=== PATIENT | female | born 1955 | race Caucasian/White ===

== ENCOUNTER 2017-01-24 17:00 | Emergency (ER) | payer MEDICARE, MEDICAID ==
[~2017-01-24] VITALS: Ht 167.6 cm; Wt 74.8 kg
[2017-01-24] MEDS ORDERED: PROTONIX TR40 MG PO (17:07)
[2017-01-24] MEDS ORDERED: CRESTOR40 M1 PO (17:07)
[2017-01-24] MEDS ORDERED: LISINOPRIL20 MG PO (17:07)
[2017-01-24] MEDS ORDERED: ZANTAC 150150 MG PO (17:07)
[2017-01-24] MEDS ORDERED: LINZESS290 MC1 PO (17:08)
[2017-01-24] MEDS ORDERED: FENOFIBRATE145 M1 PO (17:08)
[2017-01-24] MEDS ORDERED: GLUCOPHAGE500 M1 PO (17:08)
[2017-01-24] MEDS ORDERED: CARAFATE1 G1 PO (17:09)
[2017-01-24] MEDS ORDERED: PROPRANOLOL HCL40 M1 PO (17:09)
[2017-01-24] MEDS ORDERED: IMITREX100 MG PO (17:09)
[2017-01-24 17:43] LABS: BILIRUBIN NEGATIVE (NEGATIVE); BLOOD NEGATIVE (NEGATIVE); CLARITY CLEAR (CLEAR); COLOR YELLOW (YELLOW); GLUCOSE NEGATIVE (NEGATIVE); KETONE NEGATIVE (NEGATIVE); LEUKO ESTERASE NEGATIVE (NEGATIVE); NITRITE NEGATIVE (NEGATIVE); PH 5.5 (5.0-9.0); PROTEIN NEGATIVE (NEGATIVE); UROBILINOGEN 0.2 E.U./dl (0.2-1.0)
[2017-01-24 17:52] LABS: WBC 0-2 wbc/hpf (0-5)
[2017-01-24 17:53] LABS: BACTERIA TRACE; EPITHELIAL CELLS 0-2; URINE REFLEX COMMENT NO (NO)
[2017-01-24] MEDS ORDERED: ZOFRAN ODT4 MG SL (18:11)
[2017-01-24] MEDS ORDERED: CLINDAMYCIN HC300 MG PO (18:11)
== END 2017-01-24 18:15 | disposition home or self-care (01) ==
LOC: ED 17:00
PROVIDERS: Physician Assistant
DX: R11.2 Nausea with vomiting, unspecified (principal); K08.89 Other specified disorders of teeth and supporting structures; F17.200 Nicotine dependence, unspecified, uncomplicated; Z98.890 Other specified postprocedural states; Z90.710 Acquired absence of both cervix and uterus; Z79.899 Other long term (current) drug therapy; Z79.82 Long term (current) use of aspirin; Z88.0 Allergy status to penicillin; Z91.040 Latex allergy status

== ENCOUNTER 2017-02-13 14:02 | Inpatient (IN) | payer MEDICARE, MEDICAID ==
[~2017-02-13] VITALS: Ht 168 cm; Wt 76.7 kg
--- NOTE | ~2017-02-13 | ST ---
[place], [place] EXERCISE STRESS TEST REPORT NAME: ISSA AGUILERA [facility] #: [id number] UNIT #: [id number] ROOM: [facility] DOCTOR: INES ANGELES MD BIRTHDATE: [birth year] DATE: 02/15/17 REASON FOR TEST: Evaluation of chest pain. PHYSICAL EXAMINATION NECK: Supple. LUNGS: Clear anteriorly. HEART: Regular rhythm. PROTOCOL: Lexiscan protocol. Maximum heart rate 82, peak blood pressure 112/69. SYMPTOMS: The patient is chest pain free. EKG, no ischemia, no arrhythmias. CONCLUSION: Clinically, the patient is chest pain free. EKG nonischemic. POST-STRESS COMPLICATIONS: None. The patient received a total of 0.4 mg of Lexiscan. INES ANGELES MD CM:STRESS:EXERCISE STRESS TEST REPORT [id number] INES ANGELES MD
--- NOTE | ~2017-02-13 | PR ---
[place], [place] PROGRESS NOTE NAME: ISSA AGUILERA UNIT #: [id number] ROOM: 515 DOCTOR: INES ANGELES MD BIRTHDATE: [birth year] DOS: 02/15/2017 REASON FOR VISIT: Chest pain. The patient any further chest pain. No palpitations or dizziness. No orthopnea, no fever or chills. No nausea, vomiting or diarrhea. No headache, no visual symptoms. No hematuria or dysuria. REVIEW OF SYSTEMS: Review of 8 systems negative except as mentioned above. PHYSICAL EXAMINATION: VITAL SIGNS: Blood pressure 110/62, pulse 58, respiratory rate 16. GENERAL: Alert, comfortable, in no acute distress. HEAD AND NECK: Pupils are round and equal. No jaundice. Tongue was moist and pharynx was clear. Neck supple, no distended neck veins, no carotid bruit. CHEST: Chest wall symmetrical, nontender. LUNGS: Clear to auscultation bilaterally. HEART: Regular rhythm, no S3, no palpable thrills. ABDOMEN: Benign, nontender. Bowel sounds normal. EXTREMITIES: Showed no edema. Distal pulses are palpable. SKIN: Warm and dry. No cyanosis, no clubbing. NEUROLOGIC: The patient is alert, oriented. No focal neurologic deficit. Medications, rhythm strips and labs reviewed as available. IMPRESSION: 1. Chest pain, myocardial infarction ruled out. 2. Hypertension, stable. 3. Diabetes type 2. 4. Dyslipidemia. RECOMMENDATIONS: 1. Continue current medications. 2. Lexiscan stress test today to rule out ischemia. 3. The patient counseled to quit smoking. 4. The stress test is unremarkable, she can be discharged home today. [place], [place] PROGRESS NOTE NAME: ISSA AGUILERA UNIT #: [id number] ROOM: 515 DOCTOR: INES ANGELES MD BIRTHDATE: [birth year] INES ANGELES MD CM:PNTRANS [id number] INES ANGELES MD 02/16/17 0252 interface
[~2017-02-13 14:02] MED LIST: CARAFATE1 G1 PO; CLINDAMYCIN HC300 MG PO; CRESTOR40 M1 PO; FENOFIBRATE145 M1 PO; GLUCOPHAGE500 M1 PO; IMITREX100 MG PO; LINZESS290 MC1 PO; LISINOPRIL20 MG PO; PROPRANOLOL HCL40 M1 PO; PROTONIX TR40 MG PO; ZANTAC 150150 MG PO; ZOFRAN ODT4 MG SL
[2017-02-13 14:13] VITALS: BP 152/57
[2017-02-13 14:32] VITALS: BP 152/57
[2017-02-13 14:40] LABS: BASO % 0.1 % (0.0-1.0); EOS # 0.1 10*3/uL (0.0-0.4); EOS % 1.5 % (1.0-4.0); HEMATOCRIT 40.2 % (37.0-47.0); HEMOGLOBIN 13.3 g/dl (12.0-16.0); LYMPH # 3.8 10*3/uL (1.3-4.4); MEAN CELL VOLUME 88.9 fl (81.0-99.0); MEAN CORPUSCULAR HGB 29.4 pg (27.0-31.0); MEAN CORPUSCULAR HGB CONC 33.1 g/dl (33.0-37.0); MEAN PLATELET VOLUME 11.6 fl (9.6-12.3); MONO # 0.6 10*3/uL (0.1-1.0); MONO % 6.3 % (3.0-9.0); NEUT # 4.7 10*3/uL (2.3-7.9); NEUT % 50.8 % (47.0-73.0); PLATELET COUNT AUTOMATED 254 10*3/uL (130-400); RED BLOOD COUNT 4.52 10*6/uL (4.10-5.10); RED CELL DISTRI WIDTH 14.5 % (0-14.5); WHITE BLOOD COUNT 9.3 10*3/uL (4.8-10.8)
[2017-02-13 14:55] LABS: PROTHROMBIN TIME 10.9 SECONDS (9.0-12.4)
[2017-02-13 14:56] LABS: ALBUMIN 3.9 gm/dl (3.1-4.5); ALKALINE PHOSPHATASE 86 U/L (45-117); BILIRUBIN, TOTAL 0.4 mg/dl (0.2-1.0); BUN 20 mg/dl (7-24); CARBON DIOXIDE 25 mmol/L (21-32); CHLORIDE 106 mmol/L (98-107); EST GLOM FILT AFRICAN AMERICAN > 60 ml/min; GLUCOSE 98 mg/dL (65-99); MAGNESIUM 1.8 mg/dL (1.5-2.1); POTASSIUM 4.8 mmol/L (3.5-5.1); SGOT/AST 17 IU/L (3-35); SGPT/ALT 21 U/L (12-78); SODIUM 143 mmol/L (136-145); TOTAL PROTEIN 7.1 gm/dL (6.4-8.2)
[2017-02-13 14:59] LABS: TROPONIN I < 0.015 ng/ml (<0.045)
[2017-02-13 15:24] VITALS: BP 132/62
[2017-02-13 18:26] VITALS: BP 140/56
[2017-02-13 18:28] LABS: CPK 64 U/L (26-192)
[2017-02-13 18:29] LABS: CKMB < 0.5 ng/ml (0.5-3.6); TROPONIN I < 0.015 ng/ml (<0.045)
[2017-02-13 19:30] VITALS: BP 137/50
[2017-02-13] MEDS ORDERED: VENTOLIN H0.09 MG/AC INH (20:13)
[2017-02-14] VITALS: BP 148/57
[2017-02-14 00:52] LABS: CPK 65 U/L (26-192)
[2017-02-14 00:53] LABS: CKMB < 0.5 ng/ml (0.5-3.6); TROPONIN I < 0.015 ng/ml (<0.045)
[2017-02-14 06:50] LABS: BASO % 0.1 % (0.0-1.0); EOS # 0.2 10*3/uL (0.0-0.4); EOS % 1.9 % (1.0-4.0); HEMATOCRIT 39.1 % (37.0-47.0); HEMOGLOBIN 12.8 g/dl (12.0-16.0); LYMPH # 3.7 10*3/uL (1.3-4.4); LYMPH % 43.3 % (27.0-41.0); MEAN CELL VOLUME 88.5 fl (81.0-99.0); MEAN CORPUSCULAR HGB CONC 32.7 g/dl (33.0-37.0); MEAN PLATELET VOLUME 12.1 fl (9.6-12.3); MONO # 0.6 10*3/uL (0.1-1.0); NEUT # 4.1 10*3/uL (2.3-7.9); NEUT % 47.4 % (47.0-73.0); PLATELET COUNT AUTOMATED 245 10*3/uL (130-400); RED BLOOD COUNT 4.42 10*6/uL (4.10-5.10); RED CELL DISTRI WIDTH 14.3 % (0-14.5); WHITE BLOOD COUNT 8.6 10*3/uL (4.8-10.8)
[2017-02-14 07:08] LABS: CPK 56 U/L (26-192)
[2017-02-14 07:13] LABS: CKMB < 0.5 ng/ml (0.5-3.6); TROPONIN I < 0.015 ng/ml (<0.045)
[2017-02-14 07:28] LABS: CHLORIDE 106 mmol/L (98-107); SODIUM 141 mmol/L (136-145)
[2017-02-14 07:43] LABS: BUN 19 mg/dl (7-24); CARBON DIOXIDE 29 mmol/L (21-32); CHOLESTEROL 189 mg/dL (<200); EST GLOM FILT AFRICAN AMERICAN > 60 ml/min; FREE T4 1.22 ng/dl (0.76-1.46); GLUCOSE 116 mg/dL (65-99); HDL CHOLESTEROL 57 mg/dl (40-60); LDL CHOLESTEROL 106 mg/dL (9-159); PHOSPHOROUS 3.4 mg/dL (2.5-4.9); TRIGLYCERIDES 132 mg/dl (<150); VLDL CHOLESTEROL 26 mg/dL (6-40)
[2017-02-14 08:00] VITALS: BP 122/50
[2017-02-14 08:55] LABS: HEMOGLOBIN A1c 6.2 % (4.8-5.6)
[2017-02-14 12:00] VITALS: BP 95/54
[2017-02-14 16:00] VITALS: BP 116/52
[2017-02-14 20:00] VITALS: BP 119/53
[2017-02-15] VITALS: BP 112/49
[2017-02-15 08:00] VITALS: BP 112/54
[2017-02-15 12:00] VITALS: BP 138/62
[2017-02-16] MEDS ORDERED: CARAFATE1 G1 PO (18:30)
[2017-02-16] MEDS ORDERED: XANAX0.5 MG PO (18:30)
[2017-02-16] MEDS ORDERED: HYDROXYZINE HCL25 MG PO (18:30)
== END 2017-02-15 15:23 | disposition home or self-care (01) | DRG 206 ==
LOC: ED 14:02 → EDHOLD 17:35 → 5E 17:35
PROVIDERS: Registered Nurse; Student in an Organized Health Care Education/Training Program
DX: M94.0 Chondrocostal junction syndrome [Tietze] (principal); I10 Essential (primary) hypertension; E78.00 Pure hypercholesterolemia, unspecified; E11.9 Type 2 diabetes mellitus without complications; F17.210 Nicotine dependence, cigarettes, uncomplicated; Z88.0 Allergy status to penicillin; Z91.040 Latex allergy status; Z80.41 Family history of malignant neoplasm of ovary; E66.3 Overweight; Z68.25 Body mass index [BMI] 25.0-25.9, adult; G47.00 Insomnia, unspecified; Z90.710 Acquired absence of both cervix and uterus; F41.1 Generalized anxiety disorder

== ENCOUNTER 2017-02-16 16:55 | Emergency (ER) | payer MEDICARE, MEDICAID ==
[~2017-02-16] VITALS: Wt 76.7 kg
--- NOTE | ~2017-02-16 | EKG ---
[place], [place] ELECTROCARDIOGRAM REPORT NAME: ISSA AGUILERA UNIT #: [id number] ROOM: DOCTOR: DINESH LEBLANC MD BIRTHDATE: [birth year] DOS: 02/16/2017 TIME: 17:31. FINDINGS: Normal sinus rhythm at rate 61, normal electrocardiogram. DINESH LEBLANC MD CM:EKGRPT:ELECTROCARDIOGRAM REPORT 50 24 DINESH LEBLANC MD
[~2017-02-16 16:55] MED LIST changes: +VENTOLIN H0.09 MG/AC INH
[2017-02-16 17:34] LABS: BASO % 0.1 % (0.0-1.0); EOS # 0.1 10*3/uL (0.0-0.4); EOS % 1.3 % (1.0-4.0); HEMATOCRIT 38.7 % (37.0-47.0); HEMOGLOBIN 12.9 g/dl (12.0-16.0); LYMPH # 3.8 10*3/uL (1.3-4.4); LYMPH % 41.3 % (27.0-41.0); MEAN CORPUSCULAR HGB 29.7 pg (27.0-31.0); MEAN CORPUSCULAR HGB CONC 33.3 g/dl (33.0-37.0); MEAN PLATELET VOLUME 11.2 fl (9.6-12.3); MONO # 0.6 10*3/uL (0.1-1.0); MONO % 6.9 % (3.0-9.0); NEUT # 4.7 10*3/uL (2.3-7.9); NEUT % 50.2 % (47.0-73.0); PLATELET COUNT AUTOMATED 256 10*3/uL (130-400); RED BLOOD COUNT 4.35 10*6/uL (4.10-5.10); RED CELL DISTRI WIDTH 14.1 % (0-14.5); WHITE BLOOD COUNT 9.3 10*3/uL (4.8-10.8)
[2017-02-16 17:54] LABS: ALBUMIN 3.9 gm/dl (3.1-4.5); ALKALINE PHOSPHATASE 81 U/L (45-117); BILIRUBIN, TOTAL 0.2 mg/dl (0.2-1.0); BUN 17 mg/dl (7-24); CARBON DIOXIDE 25 mmol/L (21-32); CHLORIDE 110 mmol/L (98-107); CPK 87 U/L (26-192); EST GLOM FILT AFRICAN AMERICAN > 60 ml/min; GLUCOSE 96 mg/dL (65-99); LDH 168 U/L (84-246); SGOT/AST 13 IU/L (3-35); SGPT/ALT 21 U/L (12-78); SODIUM 146 mmol/L (136-145)
[2017-02-16 17:56] LABS: CKMB 0.7 ng/ml (0.5-3.6)
[2017-02-16 17:59] LABS: PROTHROMBIN TIME 11.1 SECONDS (9.0-12.4)
[2017-02-16 18:01] LABS: TROPONIN I < 0.015 ng/ml (<0.045)
[2017-02-16] MEDS ORDERED: XANAX0.5 MG PO (18:30)
[2017-02-16] MEDS ORDERED: HYDROXYZINE HCL25 MG PO (18:30)
[2017-02-16] MEDS ORDERED: CARAFATE1 G1 PO (18:30)
== END 2017-02-16 18:42 | disposition home or self-care (01) ==
LOC: ED 16:55
PROVIDERS: Physician Assistant
DX: K29.00 Acute gastritis without bleeding (principal); F41.9 Anxiety disorder, unspecified; F17.200 Nicotine dependence, unspecified, uncomplicated; Z88.0 Allergy status to penicillin; Z91.040 Latex allergy status; Z79.899 Other long term (current) drug therapy

== ENCOUNTER 2017-02-25 20:09 | Inpatient (IN) | payer MEDICARE, MEDICAID ==
[~2017-02-25] VITALS: Ht 167.6 cm; Wt 76.8 kg
--- NOTE | ~2017-02-25 | PR ---
[place], [place] PROGRESS NOTE NAME: ISSA AGUILERA UNIT #: [id number] ROOM: 532 DOCTOR: YANET TINOCO MD BIRTHDATE: [birth year] DOS: 02/28/2017 PULMONARY PROGRESS NOTE SUBJECTIVE: She has been still noted with symptoms of shortness of breath without any changes. Denies symptoms of chest pain or any abdominal pain at the present time. The patient denies any symptoms of hemoptysis. OBJECTIVE: VITAL SIGNS: For the patient which was recorded showed the temperature of the patient noted as normal, respiratory rate 20, heart rate 52-67, blood pressure 142/54-120/50. Pulse oxygen saturation on room air was 96% saturation. HEENT: Examination shows no acute change. NECK: Supple. CARDIOVASCULAR SYSTEM: S1, S2 is audible. LUNGS: The patient was noted without any wheezing or crackles at the present time. ABDOMEN: Soft, nontender. LABORATORY DATA: CT scan of the chest for this patient done as a CTA protocol yesterday for the patient was personally reviewed. There was no evidence of pulmonary embolism noted. Lung parenchymal review for this patient was done for this patient which shows evidence of a centrilobular emphysema of the patient in the upper lobes. There was no acute pulmonary infiltration or any abnormal pulmonary nodules visible. IMPRESSION: 1. The patient with recurrent shortness of breath mostly related to underlying chronic obstructive pulmonary disease has been considered. 2. Past history of nicotine use as well. PLAN OF TREATMENT: The patient could be discharged home on bronchodilators and oxygen supplementation. Other treatment, plan of management to be continued for the patient as well. Usual care. All other supportive therapy, plan of management and other treatment. Further treatment changes needs to be done for this patient based on the progression of the illness. [place], [place] PROGRESS NOTE NAME: ISSA AGUILERA UNIT #: [id number] ROOM: 532 DOCTOR: YANET TINOCO MD BIRTHDATE: [birth year] YANET SHRESTHA MD CM:PNTRANS [id number] YANET THOMAS MD 03/01/17 0218 interface
--- NOTE | ~2017-02-25 | CON ---
[place], [place] REPORT OF CONSULTATION [id number] #: [id number] ROOM: 532 DOCTOR: FADY THOMAS MD,YANET BIRTHDATE: [birth year] DOS: 02/27/2017 REASON FOR CONSULTATION: To assess the patient for symptoms of shortness of breath. HISTORY OF PRESENT ILLNESS: This is a 61-year-old white female, unknown to me from the past, presented to the hospital Emergency Room. The patient has been noted symptoms of shortness of breath, which have been noted mostly with exertion. The shortness of breath of the patient described at rest as well prior to assessment in the Emergency Room. The patient denies symptoms of chest pain. Denies any symptoms of coughing or any wheezing. The symptoms for the patient were described for the patient to be present from the past for this patient for several months. The patient was not noted symptoms of shortness of breath at rest at this time. REVIEW OF SYSTEMS: CONSTITUTIONAL: She was denying any symptoms of fever, chills, fatigue, tiredness, or any abnormal weight loss. EYES: Denies any burning, redness, or tenderness. EARS, NOSE, AND THROAT: No sore throat, hoarseness, otalgia, postnasal drainage. CARDIOVASCULAR: Denies anginal pain, edema of the lower extremities. GASTROINTESTINAL: Denies dysphagia, nausea, vomiting, diarrhea, abdominal pain, hematemesis, melena, or hematochezia. SKIN: Denies any lesions or rashes. CENTRAL NERVOUS SYSTEM: No dizziness, headache, diplopia, syncopal episodes. MUSCULOSKELETAL: No acute deformities or pain. Remaining systems were reviewed with the patient, they were noted all negative. PAST MEDICAL HISTORY: The patient was noted with history of: 1. Type 2 diabetes mellitus. 2. General anxiety disorder. 3. Essential hypertension. 4. Hypercholesterolemia. 5. Very mild obesity. 6. History of nicotine abuse. PAST SURGICAL HISTORY: 1. Appendectomy. 2. . 3. Exploratory laparotomy. 4. Hysterectomy. 5. Tonsillectomy. SOCIAL HISTORY: She is , has 3 children. Smoking started at teenage year half a pack of cigarettes per day. There was no history of alcohol use or any illicit drug use. FAMILY HISTORY: The patient's mother of the patient age of 5353 years old, [place], [place] REPORT OF CONSULTATION NAME: ISSA AGUILERA UNIT #: [id number] ROOM: 532 DOCTOR: FADY THOMAS MD,YANET BIRTHDATE: [birth year] complication related to ovarian cancer. History about dad was unknown. HOME MEDICATIONS: Noted use of Ventolin HFA inhaler p.r.n. use, fenofibrate, Vistaril, Linzess, lisinopril, metformin, Protonix, Paxil, propranolol, ranitidine, Crestor, Carafate, Imitrex. DRUG ALLERGIES: NOTED REMARKABLE FOR ALLERGY TO PENICILLINS. PHYSICAL EXAMINATION: GENERAL: This is a 61-year-old white female, currently lying in the bed for the patient without any distress. The patient's height was recorded on admission with height of 5 feet 6 inches, weight of 169 pounds, BMI 27.3. VITAL SIGNS: Normal temperature, respiratory rate 20, heart rate of 52-69, blood pressure of 151/66-144/51. Pulse oxygen saturation on room air was recorded as 91-98% saturation. HEENT: Examination shows head was atraumatic. Eyes nonicterus. NECK: Supple. CARDIOVASCULAR: S1, S2 audible. LUNGS: Mild reduced breath sounds without any wheezing or crackles. ABDOMEN: Soft, nontender. EXTREMITIES: Show no edema, clubbing, cyanosis. CENTRAL NERVOUS SYSTEM: Cranial nerves 2-12 intact. No focal deficits. SKIN: No lesions or rashes. MUSCULOSKELETAL: No deformities. LABORATORY DATA: CBC of the patient that was done 02/25/2017 was noted as normal CBC. BMP of the patient 02/25/2017 was noted, glucose 121, BUN and creatinine was normal. Remaining labs were normal. CK-MB, troponin normal. D-dimer of the patient on 02/25/2017 was 0.36 that was normal. PT and PTT for the patient on 02/26/2017 was noted as normal PT and PTT. CMP of the patient of 02/26/2017 noted normal BUN and creatinine, remaining liver function tests were normal as well. CBC of the patient remains normal on 02/26/2017. The patient has an echocardiogram for this patient that was done on previous admission and the stress testing for the patient during her admission on 02/15/2017. Echocardiogram of the patient was reported by the Cardiology Services with left ventricular ejection fraction was noted at 70% with diastolic dysfunction. Myocardial perfusion images scan for this patient was also done as the Lexiscan, described with left ventricular ejection fraction normal at 70% with normal myocardial perfusion study. Chest x-ray of the patient was essentially noted free of any acute obvious major infiltration, 1 view. IMPRESSION: The patient has been noted unexplained shortness breath, which has been described for this patient so far no etiology has been determined. The only abnormal assessment noted mildly for the patient with mild diastolic dysfunction, but there were no obvious signs of overt congestive heart failure. D-dimer was noted negative for this patient as well for this patient with current findings, certainly cannot be considered for this patient for pulmonary embolism. However, interstitial lung disease which could be early as the etiology for the patient or the shortness of breath related to anxiety and others to be considered. The reason for the patient's current shortness of [place], [place] REPORT OF CONSULTATION NAME[facility]: [id number] UNIT #: [id number] ROOM: [facility] DOCTOR: YANET TINOCO MD BIRTHDATE: [birth year] breath may be related to undiagnosed bronchial asthma, chronic obstructive pulmonary disease, which requires further outpatient assessment. PLAN OF TREATMENT: I will be ordering CT scan of the chest for this patient with CTA protocol for the patient for more definitive assessment ruling out pulmonary embolism. It would also be advantageous for this patient to rule out any parenchymal lung disease or other occult problem which is not seen just with the usual chest x-ray such as early interstitial lung disease. Once all that workup is completed for the patient and if noted negative for the patient, the patient will be considered for possible home discharge and further outpatient assessment to be done for this patient as an outpatient. Thanks for allowing me to participate in the care of this patient. YANET SHRESTHA MD CM:CONSTR:REPORT OF CONSULTATION 1341 02/28/17 1014 interface
[~2017-02-25 20:09] MED LIST changes: +HYDROXYZINE HCL25 MG PO; +XANAX0.5 MG PO
[2017-02-25 20:19] VITALS: BP 177/70
[2017-02-25 21:31] LABS: BASO % 0.2 % (0.0-1.0); EOS # 0.1 10*3/uL (0.0-0.4); EOS % 1.5 % (1.0-4.0); HEMATOCRIT 38.5 % (37.0-47.0); HEMOGLOBIN 12.7 g/dl (12.0-16.0); LYMPH # 4.8 10*3/uL (1.3-4.4); LYMPH % 51.6 % (27.0-41.0); MEAN CORPUSCULAR HGB 29.7 pg (27.0-31.0); MEAN PLATELET VOLUME 11.2 fl (9.6-12.3); MONO # 0.5 10*3/uL (0.1-1.0); MONO % 5.8 % (3.0-9.0); NEUT # 3.8 10*3/uL (2.3-7.9); NEUT % 40.7 % (47.0-73.0); PLATELET COUNT AUTOMATED 289 10*3/uL (130-400); RED BLOOD COUNT 4.28 10*6/uL (4.10-5.10); RED CELL DISTRI WIDTH 14.2 % (0-14.5); WHITE BLOOD COUNT 9.3 10*3/uL (4.8-10.8)
[2017-02-25 21:41] VITALS: BP 160/59
[2017-02-25 21:48] LABS: BUN 15 mg/dl (7-24); CARBON DIOXIDE 28 mmol/L (21-32); CHLORIDE 108 mmol/L (98-107); EST GLOM FILT AFRICAN AMERICAN > 60 ml/min; GLUCOSE 121 mg/dL (65-99); POTASSIUM 4.5 mmol/L (3.5-5.1); SODIUM 139 mmol/L (136-145); TROPONIN I < 0.015 ng/ml (<0.045)
[2017-02-25 22:27] VITALS: BP 181/64
[2017-02-25 22:42] VITALS: BP 177/66
[2017-02-25] MEDS ORDERED: VISTARIL25 M2 PO (23:25)
[2017-02-25] MEDS ORDERED: PAXIL20 M1 PO (23:27)
[2017-02-26] VITALS: BP 143/52
[2017-02-26 00:41] LABS: CPK 79 U/L (26-192)
[2017-02-26 00:42] LABS: CKMB < 0.5 ng/ml (0.5-3.6); TROPONIN I < 0.015 ng/ml (<0.045)
[2017-02-26 06:25] LABS: CKMB 0.7 ng/ml (0.5-3.6); CPK 67 U/L (26-192); TROPONIN I < 0.015 ng/ml (<0.045)
[2017-02-26 06:34] LABS: BASO % 0.1 % (0.0-1.0); EOS # 0.1 10*3/uL (0.0-0.4); EOS % 1.5 % (1.0-4.0); HEMATOCRIT 39.3 % (37.0-47.0); HEMOGLOBIN 12.6 g/dl (12.0-16.0); LYMPH # 4.7 10*3/uL (1.3-4.4); LYMPH % 53.5 % (27.0-41.0); MEAN CELL VOLUME 91.2 fl (81.0-99.0); MEAN CORPUSCULAR HGB 29.2 pg (27.0-31.0); MEAN CORPUSCULAR HGB CONC 32.1 g/dl (33.0-37.0); MEAN PLATELET VOLUME 11.4 fl (9.6-12.3); MONO # 0.6 10*3/uL (0.1-1.0); MONO % 6.7 % (3.0-9.0); NEUT # 3.3 10*3/uL (2.3-7.9); PLATELET COUNT AUTOMATED 281 10*3/uL (130-400); RED BLOOD COUNT 4.31 10*6/uL (4.10-5.10); RED CELL DISTRI WIDTH 14.2 % (0-14.5); WHITE BLOOD COUNT 8.7 10*3/uL (4.8-10.8)
[2017-02-26 06:37] LABS: ALBUMIN 3.5 gm/dl (3.1-4.5); BUN 15 mg/dl (7-24); CARBON DIOXIDE 30 mmol/L (21-32); CHLORIDE 108 mmol/L (98-107); CHOLESTEROL 196 mg/dL (<200); EST GLOM FILT AFRICAN AMERICAN > 60 ml/min; GLUCOSE 96 mg/dL (65-99); MAGNESIUM 1.9 mg/dL (1.5-2.1); PHOSPHOROUS 3.8 mg/dL (2.5-4.9); POTASSIUM 4.1 mmol/L (3.5-5.1); SGOT/AST 12 IU/L (3-35); SGPT/ALT 20 U/L (12-78); SODIUM 145 mmol/L (136-145); TRIGLYCERIDES 267 mg/dl (<150); VLDL CHOLESTEROL 53 mg/dL (6-40)
[2017-02-26 06:40] LABS: PROTHROMBIN TIME 10.9 SECONDS (9.0-12.4)
[2017-02-26 06:44] LABS: ALKALINE PHOSPHATASE 75 U/L (45-117); BILIRUBIN, TOTAL 0.2 mg/dl (0.2-1.0); FREE T4 1.21 ng/dl (0.76-1.46); HDL CHOLESTEROL 47 mg/dl (40-60); LDL CHOLESTEROL 96 mg/dL (9-159); TOTAL PROTEIN 6.7 gm/dL (6.4-8.2)
[2017-02-26 08:00] VITALS: BP 112/56
[2017-02-26 08:50] LABS: HEMOGLOBIN A1c 6.2 % (4.8-5.6)
[2017-02-26 10:41] LABS: FOLIC ACID 9.65 ng/mL (>5.38); VITAMIN D, 25-HYDROXY 25.4 ng/mL (30-100)
[2017-02-26 12:00] VITALS: BP 112/50
[2017-02-26 12:24] LABS: CPK 64 U/L (26-192)
[2017-02-26 12:25] LABS: CKMB < 0.5 ng/ml (0.5-3.6); TROPONIN I < 0.015 ng/ml (<0.045)
[2017-02-26 16:00] VITALS: BP 140/52
[2017-02-26 20:00] VITALS: BP 151/66
[2017-02-27] VITALS: BP 88/47
[2017-02-27 08:00] VITALS: BP 154/58
[2017-02-27 12:00] VITALS: BP 144/51
[2017-02-27 16:00] VITALS: BP 156/56
[2017-02-27 20:00] VITALS: BP 152/59
[2017-02-27 23:00] VITALS: BP 142/54
[2017-02-28] VITALS: BP 142/54
[2017-02-28 08:00] VITALS: BP 120/50
[2017-02-28] MEDS ORDERED: D-1000 185 MG-11 TAB PO (11:01)
[2017-02-28] MEDS ORDERED: ASPIRIN ADULT L81 M2 PO (11:01)
[2017-02-28] MEDS ORDERED: VISTARIL25 M2 PO (11:11)
== END 2017-02-28 14:20 | disposition home or self-care (01) | DRG 880 ==
LOC: ED 20:09 → 5E 21:20 → EDHOLD 21:20 → 5E 22:02
PROVIDERS: Emergency Medicine Emergency Medical Services; Internal Medicine
DX: F41.1 Generalized anxiety disorder (principal); E11.65 Type 2 diabetes mellitus with hyperglycemia; I10 Essential (primary) hypertension; R00.1 Bradycardia, unspecified; E78.00 Pure hypercholesterolemia, unspecified; E66.3 Overweight; E55.9 Vitamin D deficiency, unspecified; F17.210 Nicotine dependence, cigarettes, uncomplicated; K29.70 Gastritis, unspecified, without bleeding; E78.5 Hyperlipidemia, unspecified; F43.10 Post-traumatic stress disorder, unspecified; F32.9 Major depressive disorder, single episode, unspecified; J44.9 Chronic obstructive pulmonary disease, unspecified; Z68.25 Body mass index [BMI] 25.0-25.9, adult; Z82.49 Family history of ischemic heart disease and other diseases of the circulatory system; Z98.891 History of uterine scar from previous surgery; Z90.710 Acquired absence of both cervix and uterus; Z90.49 Acquired absence of other specified parts of digestive tract; Z80.41 Family history of malignant neoplasm of ovary; Z88.0 Allergy status to penicillin; Z91.040 Latex allergy status; Z79.84 Long term (current) use of oral hypoglycemic drugs; Z79.899 Other long term (current) drug therapy

== ENCOUNTER → 2017-04-03 | Outpatient (CLI) | payer MEDICARE, MEDICAID ==
[~2017-04-03] MED LIST changes: +ASPIRIN ADULT L81 M2 PO; +D-1000 185 MG-11 TAB PO; +PAXIL20 M1 PO; +VISTARIL25 M2 PO
== END | disposition home or self-care (01) ==
LOC: US 14:49
DX: N20.0 Calculus of kidney (principal); N23 Unspecified renal colic; N32.89 Other specified disorders of bladder

== ENCOUNTER → 2017-04-04 | Outpatient (CLI) | payer MEDICARE, MEDICAID | END | disposition home or self-care (01) | LOC: ORTHO 02:18 | DX: M17.0 Bilateral primary osteoarthritis of knee (principal); M25.762 Osteophyte, left knee; M25.761 Osteophyte, right knee ==

== ENCOUNTER → 2017-05-24 | Outpatient (CLI) | payer MEDICARE, MEDICAID | END | disposition home or self-care (01) | LOC: RAD 12:28 | DX: M43.16 Spondylolisthesis, lumbar region (principal); M51.36 Other intervertebral disc degeneration, lumbar region; M48.07 Spinal stenosis, lumbosacral region; M47.897 Other spondylosis, lumbosacral region; Z91.81 History of falling ==

== ENCOUNTER → 2017-09-07 | Outpatient (CLI) | payer MEDICARE, MEDICAID | LOC: MAMMO 09:43 | DX: Z12.31 Encounter for screening mammogram for malignant neoplasm of breast (principal) ==

== ENCOUNTER → 2017-09-14 | Outpatient (CLI) | payer MEDICARE, MEDICAID | END | disposition home or self-care (01) | LOC: CT 09:57 | DX: M17.12 Unilateral primary osteoarthritis, left knee (principal) ==

== ENCOUNTER 2017-10-28 17:35 | Emergency (ER) | payer MEDICARE, MEDICAID ==
[~2017-10-28] VITALS: Ht 170.1 cm; Wt 75.3 kg
[2017-10-28] MEDS ORDERED: ZITHROMAX250 MG PO (19:16)
[2017-10-28] MEDS ORDERED: PROAIR HFA8.5 GM INH (19:16)
[2017-10-28] MEDS ORDERED: PREDNISONE10 MG PO (19:16)
== END 2017-10-28 19:22 | disposition home or self-care (01) ==
LOC: ED 17:35
DX: J40 Bronchitis, not specified as acute or chronic (principal); J44.9 Chronic obstructive pulmonary disease, unspecified; F17.200 Nicotine dependence, unspecified, uncomplicated; Z90.49 Acquired absence of other specified parts of digestive tract; Z98.890 Other specified postprocedural states; Z90.710 Acquired absence of both cervix and uterus; Z79.899 Other long term (current) drug therapy; Z79.82 Long term (current) use of aspirin; Z88.0 Allergy status to penicillin; Z91.040 Latex allergy status

== ENCOUNTER 2017-11-12 17:35 | Inpatient (IN) | payer MEDICARE, MEDICAID ==
[~2017-11-12] VITALS: Ht 170.1 cm; Wt 75.4 kg
[~2017-11-12 17:35] MED LIST changes: -FENOFIBRATE145 M1 PO; +FENOFIBRATE160 MG PO; +PREDNISONE10 MG PO; +PROAIR HFA8.5 GM INH; +ZITHROMAX250 MG PO
[2017-11-12 17:52] VITALS: BP 102/60
[2017-11-12 18:28] VITALS: BP 119/50
[2017-11-12 18:35] LABS: BILIRUBIN NEGATIVE (NEGATIVE); BLOOD NEGATIVE (NEGATIVE); CLARITY CLOUDY (CLEAR); COLOR YELLOW (YELLOW); GLUCOSE NEGATIVE (NEGATIVE); KETONE NEGATIVE (NEGATIVE); LEUKO ESTERASE 2+ (NEGATIVE); NITRITE NEGATIVE (NEGATIVE); PH 6.5 (5.0-9.0); SPECIFIC GRAVITY 1.015 (1.005-1.030); UROBILINOGEN 0.2 E.U./dl (0.2-1.0)
[2017-11-12 18:40] LABS: RBC 0-2 rbc/hpf (0-2)
[2017-11-12 18:41] LABS: BACTERIA 4+; WBC 21-30 wbc/hpf (0-5)
[2017-11-12 18:51] LABS: BASO % 0.2 % (0.0-1.0); EOS % 0.1 % (1.0-4.0); HEMOGLOBIN 15.3 g/dl (12.0-16.0); LYMPH # 2.2 10*3/uL (1.3-4.4); LYMPH % 17.3 % (27.0-41.0); MEAN CELL VOLUME 90.2 fl (81.0-99.0); MEAN CORPUSCULAR HGB 29.4 pg (27.0-31.0); MEAN CORPUSCULAR HGB CONC 32.6 g/dl (33.0-37.0); MEAN PLATELET VOLUME 10.8 fl (9.6-12.3); MONO # 0.7 10*3/uL (0.1-1.0); MONO % 5.1 % (3.0-9.0); NEUT # 9.9 10*3/uL (2.3-7.9); PLATELET COUNT AUTOMATED 304 10*3/uL (130-400); RED BLOOD COUNT 5.21 10*6/uL (4.10-5.10); RED CELL DISTRI WIDTH 15.6 % (0-14.5); WHITE BLOOD COUNT 12.9 10*3/uL (4.8-10.8)
[2017-11-12 19:10] LABS: ALBUMIN 3.3 gm/dl (3.1-4.5); CREATININE 1.28 mg/dL (0.55-1.02); POTASSIUM 4.4 mmol/L (3.5-5.1); TOTAL PROTEIN 6.8 gm/dL (6.4-8.2)
[2017-11-12 21:26] VITALS: BP 126/72
[2017-11-12 21:45] VITALS: BP 130/60
[2017-11-12 22:00] VITALS: BP 130/60
[2017-11-12] MEDS ORDERED: DOXEPIN25 MG PO (22:13)
[2017-11-12] MEDS ORDERED: REQUIP0.5 MG PO (22:13)
[2017-11-12] MEDS ORDERED: ATIVAN0.5 MG PO (22:14)
[2017-11-13] VITALS: BP 142/64
[2017-11-13 04:19] LABS: BASO % 0.2 % (0.0-1.0); EOS % 0.3 % (1.0-4.0); HEMATOCRIT 42.2 % (37.0-47.0); HEMOGLOBIN 13.7 g/dl (12.0-16.0); LYMPH # 2.5 10*3/uL (1.3-4.4); LYMPH % 20.8 % (27.0-41.0); MEAN CELL VOLUME 89.6 fl (81.0-99.0); MEAN CORPUSCULAR HGB 29.1 pg (27.0-31.0); MEAN CORPUSCULAR HGB CONC 32.5 g/dl (33.0-37.0); MEAN PLATELET VOLUME 10.9 fl (9.6-12.3); MONO # 0.8 10*3/uL (0.1-1.0); MONO % 6.8 % (3.0-9.0); NEUT # 8.6 10*3/uL (2.3-7.9); NEUT % 71.6 % (47.0-73.0); PLATELET COUNT AUTOMATED 267 10*3/uL (130-400); RED BLOOD COUNT 4.71 10*6/uL (4.10-5.10); RED CELL DISTRI WIDTH 15.7 % (0-14.5)
[2017-11-13 04:34] LABS: ALBUMIN 3.2 gm/dl (3.1-4.5); ALKALINE PHOSPHATASE 113 U/L (45-117); BUN 27 mg/dl (7-24); CHLORIDE 107 mmol/L (98-107); CHOLESTEROL 173 mg/dL (<200); CREATININE 1.04 mg/dL (0.55-1.02); HDL CHOLESTEROL 66 mg/dl (40-60); LDL CHOLESTEROL 61 mg/dL (9-159); PHOSPHOROUS 5.3 mg/dL (2.5-4.9); POTASSIUM 3.8 mmol/L (3.5-5.1); SGOT/AST 17 IU/L (3-35); SGPT/ALT 20 U/L (12-78); SODIUM 141 mmol/L (136-145); TOTAL PROTEIN 6.5 gm/dL (6.4-8.2); TRIGLYCERIDES 229 mg/dl (<150); VLDL CHOLESTEROL 46 mg/dL (6-40)
[2017-11-13 08:00] VITALS: BP 163/63
[2017-11-13 08:11] LABS: VITAMIN D, 25-HYDROXY 21.5 ng/mL (30-100)
[2017-11-13 12:00] VITALS: BP 150/73
[2017-11-13 16:00] VITALS: BP 170/80
[2017-11-13 20:00] VITALS: BP 130/59
[2017-11-14] VITALS: BP 115/54
[2017-11-14 07:39] LABS: BASO % 0.4 % (0.0-1.0); EOS % 0.7 % (1.0-4.0); HEMATOCRIT 38.5 % (37.0-47.0); HEMOGLOBIN 12.3 g/dl (12.0-16.0); LYMPH # 2.1 10*3/uL (1.3-4.4); LYMPH % 40.1 % (27.0-41.0); MEAN CORPUSCULAR HGB 29.6 pg (27.0-31.0); MEAN CORPUSCULAR HGB CONC 31.9 g/dl (33.0-37.0); MEAN PLATELET VOLUME 10.9 fl (9.6-12.3); MONO # 0.7 10*3/uL (0.1-1.0); MONO % 13.7 % (3.0-9.0); NEUT # 2.4 10*3/uL (2.3-7.9); NEUT % 44.9 % (47.0-73.0); PLATELET COUNT AUTOMATED 205 10*3/uL (130-400); RED BLOOD COUNT 4.15 10*6/uL (4.10-5.10); RED CELL DISTRI WIDTH 15.2 % (0-14.5); WHITE BLOOD COUNT 5.3 10*3/uL (4.8-10.8)
[2017-11-14 07:43] LABS: MEAN CELL VOLUME 92.8 fl (81.0-99.0)
[2017-11-14 08:00] VITALS: BP 158/59
[2017-11-14 08:08] LABS: ALBUMIN 2.6 gm/dl (3.1-4.5); BUN 19 mg/dl (7-24); CHLORIDE 108 mmol/L (98-107); POTASSIUM 4.2 mmol/L (3.5-5.1); SODIUM 143 mmol/L (136-145)
[2017-11-14 08:12] LABS: ALKALINE PHOSPHATASE 99 U/L (45-117); CREATININE 0.58 mg/dL (0.55-1.02); PHOSPHOROUS 2.8 mg/dL (2.5-4.9); SGOT/AST 15 IU/L (3-35); SGPT/ALT 17 U/L (12-78); TOTAL PROTEIN 5.7 gm/dL (6.4-8.2)
[2017-11-14 12:00] VITALS: BP 145/57
[2017-11-14 16:00] VITALS: BP 156/62
[2017-11-14 20:00] VITALS: BP 145/55
[2017-11-14 23:46] VITALS: BP 170/70
[2017-11-15 08:00] VITALS: BP 154/57
[2017-11-15 12:00] VITALS: BP 154/65
[2017-11-15 16:00] VITALS: BP 150/61
[2017-11-15 20:00] VITALS: BP 153/63
[2017-11-15] MEDS ORDERED: ATIVAN0.5 MG PO (21:54)
[2017-11-15] MEDS ORDERED: GLUCOPHAGE500 M1 PO (21:56)
[2017-11-15] MEDS ORDERED: CARAFATE1 GM PO (21:59)
[2017-11-16] VITALS: BP 121/76
[2017-11-16 08:00] VITALS: BP 131/80
[2017-11-16] MEDS ORDERED: CYCLOBENZAPRINE5 M3 PO (10:48)
== END 2017-11-16 12:09 | disposition home or self-care (01) | DRG 871 ==
LOC: ED 17:35 → EDHOLD 21:15 → 4E 21:15
PROVIDERS: Hospitalist; Internal Medicine Hospice and Palliative Medicine; Nurse Practitioner Family
PROC: 0D9670Z Drainage of Stomach with Drainage Device, Via Natural or Artificial Opening (ICD-10-PCS; principal; 2017-11-13)
DX: A41.9 Sepsis, unspecified organism (principal); N17.0 Acute kidney failure with tubular necrosis; N39.0 Urinary tract infection, site not specified; K56.600 Partial intestinal obstruction, unspecified as to cause; R65.20 Severe sepsis without septic shock; I10 Essential (primary) hypertension; G47.00 Insomnia, unspecified; F17.210 Nicotine dependence, cigarettes, uncomplicated; G43.909 Migraine, unspecified, not intractable, without status migrainosus; K21.9 Gastro-esophageal reflux disease without esophagitis; E86.0 Dehydration; E11.65 Type 2 diabetes mellitus with hyperglycemia; E78.00 Pure hypercholesterolemia, unspecified; F41.1 Generalized anxiety disorder; Z88.0 Allergy status to penicillin; Z91.040 Latex allergy status; Z79.899 Other long term (current) drug therapy; Z79.82 Long term (current) use of aspirin; Z90.49 Acquired absence of other specified parts of digestive tract; Z90.710 Acquired absence of both cervix and uterus; Z80.41 Family history of malignant neoplasm of ovary; Z85.42 Personal history of malignant neoplasm of other parts of uterus

== ENCOUNTER 2017-11-22 13:49 | Inpatient (IN) | payer MEDICARE, MEDICAID ==
[2017-11-22] VITALS (7 sets, daily range): BP systolic 94–106; BP diastolic 37–55
[~2017-11-22] VITALS: Ht 167.6 cm; Wt 69.9 kg
--- NOTE | ~2017-11-22 | CON ---
[place], [place] REPORT OF CONSULTATION NAME: ISSA AGUILERA UNIT #: [id number] ROOM: 503 DOCTOR: DINESH LELBANC MD BIRTHDATE: [birth year] DOS: 11/25/2017 CHIEF COMPLAINT: Palpitations. HISTORY OF PRESENT ILLNESS: The patient is a 62-year-old woman who has no previously documented history of coronary artery disease. She did undergo a cardiac evaluation in January and February 2017 when she presented with atypical chest pain and dyspnea. A stress test at that time was normal and an echocardiogram only showed left ventricular hypertrophy. Recently, she was hospitalized for small-bowel obstruction, which improved and she was discharged to home. She presented again on 11/22/2017 with recurrent abdominal discomfort, nausea, vomiting and chills. She was dehydrated on admission. She did show evidence for an acute renal injury, which has subsequently improved. Last evening, as she was sitting up in bed, getting ready to go to the restroom, she was noted to develop a rapid irregular heartbeat. Her electrocardiogram and monitor strips were consistent with atrial fibrillation and rapid ventricular response. She had never had this before. An echocardiogram obtained earlier this hospitalization had shown only left ventricular hypertrophy with normal valve function and normal left ventricular systolic function. Left atrial size was normal. A TSH was also normal. She was anticoagulated with heparin and placed on a diltiazem drip. She then converted to sinus rhythm spontaneously. We were asked to comment on the significance of this event. Currently, the patient feels well and actually denies having palpitations or dyspnea when her heart was out of rhythm. PAST MEDICAL HISTORY: Includes 1. Essential hypertension. 2. Gastroesophageal reflux disease. 3. Hypertriglyceridemia. 4. Migraine headaches. 5. Depression. 6. Restless leg syndrome. 7. Small-bowel obstruction. 8. Tobacco abuse, abstinent for the last 2 months. 9. Type 2 diabetes mellitus. 10. Status post appendectomy, , hysterectomy and exploratory laparotomy. 11. Atrial fibrillation documented for the first time, 11/24/2017, converted spontaneously to sinus rhythm. 12. Echocardiogram, 11/23/2017, normal left ventricular size and wall motion with ejection fraction 70%, stage 1 diastolic dysfunction, moderate left ventricular hypertrophy, normal valves and normal left atrial dimensions. MEDICATIONS: At the time of this dictation: 1. Potassium chloride as needed to maintain normal potassium. 2. Dilaudid 0.5 mg q. 2 hours p.r.n. 3. Diltiazem 30 mg q. 6 hours. [place], [place] REPORT OF CONSULTATION NAME: ISSA AGUILERA UNIT #: [id number] ROOM: [facility] DOCTOR: DINESH LEBLANC MD BIRTHDATE: [birth year] 4. Heparin by infusion. 5. ACS protocol. 6. Pantoprazole 40 mg IV daily. 7. Ceftriaxone 1 gram IV. 8. Lorazepam 1 mg q. 12 hours p.r.n. 9. Insulin by sliding scale. 10. Zofran 4 mg IV q. 6 hours p.r.n. ALLERGIES: She lists allergies to LATEX and PENICILLINS. FAMILY HISTORY: The patient's mother at age 53 from ovarian cancer. Father's history is not known. REVIEW OF SYSTEMS: The patient denies diplopia or loss of vision. She denies lightheadedness or syncope. She denies palpitations or chest pain. She has had dyspnea with exertion. She denies orthopnea or PND. She denies fevers, chills, sweats or recent weight change with the exception that she has been losing weight since she has had small-bowel obstruction for the last few weeks. She does admit to constipation. She denies hemoptysis or hematemesis, but she has had vomiting. She denies any blood in her stools or urine. She denies any peripheral edema. She did have a lightheaded and near syncopal spell just prior to admission, which improved when she was hydrated. Remainder of the review of systems is negative except as noted above. SOCIAL HISTORY: The patient drinks alcohol rarely. She was a smoker of about one-fourth pack of cigarettes a day until 2 months ago, but has been abstinent since then. PHYSICAL EXAMINATION: GENERAL: The patient is a well-nourished white female who is awake, alert and oriented. VITAL SIGNS: Pulse is 71 and regular, blood pressure is 115/53. She is afebrile. She weighs 69.9 kilograms. She has a body mass index 24.9. HEENT: Normocephalic, atraumatic. Extraocular muscles are intact. Sclerae are clear. Pupils are equal, round and react to light. The oral mucosa is moist. Tongue is midline. NECK: Supple. She has no jugular distention. Carotids are full. I heard no bruits. She had no neck or supraclavicular masses. No thyromegaly. LUNGS: Respirations are unlabored. Her chest is clear to auscultation and percussion. She has no presacral edema or chest wall tenderness. HEART: Has a regular rhythm. She has a soft S4 gallop, but no S3 or murmur. The PMI is not displaced. She has no precordial heave, lift or thrill. ABDOMEN: Soft and normally active without masses, organomegaly or bruits. EXTREMITIES: Showed no clubbing, cyanosis or edema. Peripheral pulses are easily palpated in the feet bilaterally. LABORATORY DATA: I reviewed her electrocardiograms. The EKG from last evening did show atrial fibrillation with a rapid ventricular response. The subsequent EKGs have been unremarkable. She did have evidence for left ventricular hypertrophy and secondary ST and T-wave changes. [place], [place] REPORT OF CONSULTATION NAME: ISSA AGUILERA UNIT #: [id number] ROOM: [facility] DOCTOR: DINESH LEBLANC MD BIRTHDATE: [birth year] Sodium is 137, potassium is 3.4, but was replaced, BUN 14, creatinine 0.55. Troponin was minimally elevated at 0.056. This is likely due to demand ischemia. TSH was normal at 0.392. Chest x-ray showed normal heart size without infiltrates. IMPRESSIONS: 1. Newly documented atrial fibrillation. 2. History of hypertension. 3. CHADS-VASc score of 3, indicating a high risk for future cardioembolic events without anticoagulation. 4. Hyperlipidemia. 5. Gastroesophageal reflux disease. 6. Depression. 7. Hospitalized for small-bowel obstruction. PLAN: I agree with her management thus far. No other workup is indicated since she had an echocardiogram already this admission and has had a normal stress test within the last year. At this point, as mentioned, I do believe that her elevation in troponin was due to demand ischemia, but we will trend her troponin over the next 6 hours. I think that long-term anticoagulation is appropriate. The patient states that her mother was on Coumadin for atrial fibrillation and transient ischemic attacks. The patient is aware of how Coumadin works, but she would rather take one of the direct oral anticoagulants. We have discussed them and she has agreed to start Xarelto. We will do that and stop her heparin drip. We will follow her in the hospital while she remains here and I thank the hospitalist physicians for asking our advice regarding her care. We will be happy to see her as an outpatient over the next several weeks. DINESH LEBLANC MD CM:CONSTR:REPORT OF CONSULTATION 1506 11/25/17 2202 interface
[~2017-11-22 13:49] MED LIST changes: +ATIVAN0.5 MG PO; +CARAFATE1 GM PO; +CYCLOBENZAPRINE5 M3 PO; +DOXEPIN25 MG PO; +REQUIP0.5 MG PO
[2017-11-22 14:32] LABS: BASO % 0.2 % (0.0-1.0); EOS % 0.1 % (1.0-4.0); HEMATOCRIT 47.1 % (37.0-47.0); HEMOGLOBIN 15.3 g/dl (12.0-16.0); LYMPH # 3.4 10*3/uL (1.3-4.4); LYMPH % 16.8 % (27.0-41.0); MEAN CELL VOLUME 89.9 fl (81.0-99.0); MEAN CORPUSCULAR HGB 29.2 pg (27.0-31.0); MEAN CORPUSCULAR HGB CONC 32.5 g/dl (33.0-37.0); MEAN PLATELET VOLUME 10.6 fl (9.6-12.3); MONO # 1.3 10*3/uL (0.1-1.0); MONO % 6.4 % (3.0-9.0); NEUT # 15.1 10*3/uL (2.3-7.9); NEUT % 75.1 % (47.0-73.0); PLATELET COUNT AUTOMATED 431 10*3/uL (130-400); RED BLOOD COUNT 5.24 10*6/uL (4.10-5.10); RED CELL DISTRI WIDTH 14.7 % (0-14.5); WHITE BLOOD COUNT 20.2 10*3/uL (4.8-10.8)
[2017-11-22 14:33] LABS: BILIRUBIN 1+ (NEGATIVE); BLOOD 1+ (NEGATIVE); CLARITY CLOUDY (CLEAR); COLOR YELLOW (YELLOW); GLUCOSE NEGATIVE (NEGATIVE); KETONE TRACE (NEGATIVE); LEUKO ESTERASE 2+ (NEGATIVE); NITRITE POSITIVE (NEGATIVE); SPECIFIC GRAVITY >= 1.030 (1.005-1.030); UROBILINOGEN 0.2 E.U./dl (0.2-1.0)
[2017-11-22] MEDS ORDERED: GEMFIBROZIL600 MG PO (14:35)
[2017-11-22 14:43] LABS: BACTERIA 2+; EPITHELIAL CELLS TNTC; MUCOUS 1+; WBC 16-20 wbc/hpf (0-5)
[2017-11-22 14:53] LABS: ALBUMIN 3.9 gm/dl (3.1-4.5); CREATININE 4.66 mg/dL (0.55-1.02); POTASSIUM 4.3 mmol/L (3.5-5.1); TOTAL PROTEIN 8.6 gm/dL (6.4-8.2)
[2017-11-22] MEDS ORDERED: CRESTOR40 M1 PO (18:18)
[2017-11-22] MEDS ORDERED: CYMBALTA60 MG PO (18:21)
[2017-11-22] MEDS ORDERED: AMBIEN10 M1 PO (18:21)
[2017-11-22] MEDS ORDERED: ZOFRAN4 MG PO (18:22)
[2017-11-23] VITALS: BP 110/44
[2017-11-23 06:00] VITALS: BP 113/40
[2017-11-23 06:26] LABS: ACT PARTIAL THROMBO TIME 24.2 SECONDS (20.8-31.5); INTERNATIONAL NORM RATIO 1.1 (2.0-3.5)
[2017-11-23 07:07] LABS: BASO % 0.2 % (0.0-1.0); EOS # 0.1 10*3/uL (0.0-0.4); EOS % 0.3 % (1.0-4.0); LYMPH # 3.7 10*3/uL (1.3-4.4); LYMPH % 24.1 % (27.0-41.0); MEAN CELL VOLUME 90.7 fl (81.0-99.0); MEAN CORPUSCULAR HGB 29.3 pg (27.0-31.0); MEAN CORPUSCULAR HGB CONC 32.4 g/dl (33.0-37.0); MEAN PLATELET VOLUME 10.6 fl (9.6-12.3); MONO # 0.8 10*3/uL (0.1-1.0); MONO % 5.3 % (3.0-9.0); NEUT # 10.7 10*3/uL (2.3-7.9); NEUT % 69.5 % (47.0-73.0); PLATELET COUNT AUTOMATED 337 10*3/uL (130-400); RED CELL DISTRI WIDTH 14.6 % (0-14.5); WHITE BLOOD COUNT 15.5 10*3/uL (4.8-10.8)
[2017-11-23 07:20] LABS: HEMATOCRIT 40.8 % (37.0-47.0); HEMOGLOBIN 13.2 g/dl (12.0-16.0)
[2017-11-23 07:44] LABS: CREATININE 1.95 mg/dL (0.55-1.02); PHOSPHOROUS 4.2 mg/dL (2.5-4.9); POTASSIUM 3.5 mmol/L (3.5-5.1); TOTAL PROTEIN 6.9 gm/dL (6.4-8.2)
[2017-11-23 07:51] LABS: THYROID STIM HORMONE (HS) 0.392 uIU/ml (0.358-4.75)
[2017-11-23 08:00] VITALS: BP 100/40
[2017-11-23 12:00] VITALS: BP 114/60
[2017-11-23 16:00] VITALS: BP 91/68
[2017-11-23 20:00] VITALS: BP 101/52
[2017-11-24] VITALS: BP 100/48; BP 92/37
[2017-11-24 04:00] VITALS: BP 98/50
[2017-11-24 06:05] LABS: BUN 28 mg/dl (7-24); CHLORIDE 105 mmol/L (98-107); CREATININE 0.88 mg/dL (0.55-1.02); PHOSPHOROUS 2.4 mg/dL (2.5-4.9); POTASSIUM 4.1 mmol/L (3.5-5.1); SODIUM 140 mmol/L (136-145)
[2017-11-24 06:21] LABS: BASO % 0.1 % (0.0-1.0); EOS % 0.3 % (1.0-4.0); LYMPH # 3.1 10*3/uL (1.3-4.4); LYMPH % 22.2 % (27.0-41.0); MEAN CELL VOLUME 93.4 fl (81.0-99.0); MEAN CORPUSCULAR HGB 29.1 pg (27.0-31.0); MEAN CORPUSCULAR HGB CONC 31.2 g/dl (33.0-37.0); MEAN PLATELET VOLUME 11.1 fl (9.6-12.3); MONO # 1.1 10*3/uL (0.1-1.0); MONO % 8.1 % (3.0-9.0); NEUT # 9.5 10*3/uL (2.3-7.9); NEUT % 68.5 % (47.0-73.0); PLATELET COUNT AUTOMATED 261 10*3/uL (130-400); RED CELL DISTRI WIDTH 14.5 % (0-14.5); WHITE BLOOD COUNT 13.9 10*3/uL (4.8-10.8)
[2017-11-24 06:24] LABS: HEMATOCRIT 32.7 % (37.0-47.0); HEMOGLOBIN 10.2 g/dl (12.0-16.0)
[2017-11-24 08:00] VITALS: BP 100/48
[2017-11-24 12:00] VITALS: BP 100/50
[2017-11-24 16:00] VITALS: BP 115/40
[2017-11-24 18:46] LABS: BASO % 0.1 % (0.0-1.0); EOS # 0.1 10*3/uL (0.0-0.4); EOS % 0.5 % (1.0-4.0); HEMOGLOBIN 11.2 g/dl (12.0-16.0); LYMPH # 3.8 10*3/uL (1.3-4.4); LYMPH % 27.3 % (27.0-41.0); MEAN CELL VOLUME 91.6 fl (81.0-99.0); MEAN CORPUSCULAR HGB 29.3 pg (27.0-31.0); MEAN PLATELET VOLUME 10.7 fl (9.6-12.3); MONO % 6.8 % (3.0-9.0); NEUT % 64.7 % (47.0-73.0); PLATELET COUNT AUTOMATED 286 10*3/uL (130-400); RED BLOOD COUNT 3.82 10*6/uL (4.10-5.10); RED CELL DISTRI WIDTH 14.2 % (0-14.5); WHITE BLOOD COUNT 13.9 10*3/uL (4.8-10.8)
[2017-11-24 20:00] VITALS: BP 109/54; BP 152/61
[2017-11-25] VITALS: BP 113/44
[2017-11-25 07:17] LABS: BASO % 0.2 % (0.0-1.0); EOS # 0.1 10*3/uL (0.0-0.4); EOS % 1.2 % (1.0-4.0); HEMATOCRIT 32.1 % (37.0-47.0); HEMOGLOBIN 10.2 g/dl (12.0-16.0); LYMPH # 4.3 10*3/uL (1.3-4.4); LYMPH % 35.5 % (27.0-41.0); MEAN CELL VOLUME 91.2 fl (81.0-99.0); MEAN CORPUSCULAR HGB CONC 31.8 g/dl (33.0-37.0); MEAN PLATELET VOLUME 11.7 fl (9.6-12.3); MONO # 0.8 10*3/uL (0.1-1.0); MONO % 6.3 % (3.0-9.0); NEUT # 6.7 10*3/uL (2.3-7.9); NEUT % 56.1 % (47.0-73.0); PLATELET COUNT AUTOMATED 289 10*3/uL (130-400); RED BLOOD COUNT 3.52 10*6/uL (4.10-5.10); RED CELL DISTRI WIDTH 14.1 % (0-14.5)
[2017-11-25 07:36] LABS: CHLORIDE 103 mmol/L (98-107); CREATININE 0.55 mg/dL (0.55-1.02); PHOSPHOROUS 2.5 mg/dL (2.5-4.9); POTASSIUM 3.4 mmol/L (3.5-5.1); SODIUM 137 mmol/L (136-145)
[2017-11-25 07:41] LABS: BUN 14 mg/dl (7-24)
[2017-11-25 08:00] VITALS: BP 109/48
[2017-11-25 12:00] VITALS: BP 115/53
[2017-11-25 16:00] VITALS: BP 124/50
[2017-11-25 19:55] VITALS: BP 141/54
[2017-11-26] VITALS: BP 139/61
[2017-11-26 06:35] LABS: BUN 7 mg/dl (7-24); CHLORIDE 107 mmol/L (98-107); CREATININE 0.53 mg/dL (0.55-1.02); PHOSPHOROUS 2.6 mg/dL (2.5-4.9); POTASSIUM 4.5 mmol/L (3.5-5.1); SODIUM 143 mmol/L (136-145)
[2017-11-26 06:47] LABS: BASO % 0.4 % (0.0-1.0); EOS # 0.2 10*3/uL (0.0-0.4); HEMATOCRIT 31.4 % (37.0-47.0); HEMOGLOBIN 10.1 g/dl (12.0-16.0); LYMPH # 2.7 10*3/uL (1.3-4.4); LYMPH % 34.1 % (27.0-41.0); MEAN CELL VOLUME 91.5 fl (81.0-99.0); MEAN CORPUSCULAR HGB 29.4 pg (27.0-31.0); MEAN CORPUSCULAR HGB CONC 32.2 g/dl (33.0-37.0); MEAN PLATELET VOLUME 11.3 fl (9.6-12.3); MONO # 0.6 10*3/uL (0.1-1.0); MONO % 7.1 % (3.0-9.0); NEUT # 4.3 10*3/uL (2.3-7.9); PLATELET COUNT AUTOMATED 304 10*3/uL (130-400); RED BLOOD COUNT 3.43 10*6/uL (4.10-5.10); RED CELL DISTRI WIDTH 13.9 % (0-14.5); WHITE BLOOD COUNT 7.9 10*3/uL (4.8-10.8)
[2017-11-26 08:00] VITALS: BP 143/61
[2017-11-26 12:00] VITALS: BP 148/60
[2017-11-26] MEDS ORDERED: SEPTDS PO (13:14)
[2017-11-26] MEDS ORDERED: XARE20MG PO (13:14)
[2017-11-26] MEDS ORDERED: DILTIAZEM 24HR120 MG PO (13:14)
== END 2017-11-26 14:07 | disposition home or self-care (01) | DRG 871 ==
LOC: ED 13:49 → EDHOLD 16:14 → 5E 16:14
PROVIDERS: Emergency Medicine; Internal Medicine; Internal Medicine Hospice and Palliative Medicine; Internal Medicine Nephrology
PROC: 0D9670Z Drainage of Stomach with Drainage Device, Via Natural or Artificial Opening (ICD-10-PCS; principal; 2017-11-23)
DX: A41.9 Sepsis, unspecified organism (principal); N17.0 Acute kidney failure with tubular necrosis; E87.2 Acidosis; K56.609 Unspecified intestinal obstruction, unspecified as to partial versus complete obstruction; E11.65 Type 2 diabetes mellitus with hyperglycemia; I48.91 Unspecified atrial fibrillation; E86.0 Dehydration; N39.0 Urinary tract infection, site not specified; I50.32 Chronic diastolic (congestive) heart failure; I24.8 Other forms of acute ischemic heart disease; D47.3 Essential (hemorrhagic) thrombocythemia; R65.20 Severe sepsis without septic shock; K21.9 Gastro-esophageal reflux disease without esophagitis; F41.1 Generalized anxiety disorder; G25.81 Restless legs syndrome; G43.909 Migraine, unspecified, not intractable, without status migrainosus; F32.9 Major depressive disorder, single episode, unspecified; E55.9 Vitamin D deficiency, unspecified; E78.1 Pure hyperglyceridemia; F17.210 Nicotine dependence, cigarettes, uncomplicated; G47.00 Insomnia, unspecified; I11.0 Hypertensive heart disease with heart failure; R91.1 Solitary pulmonary nodule; Z79.82 Long term (current) use of aspirin; Z79.899 Other long term (current) drug therapy; Z88.0 Allergy status to penicillin; Z91.040 Latex allergy status; Z79.4 Long term (current) use of insulin; Z80.41 Family history of malignant neoplasm of ovary; Z71.6 Tobacco abuse counseling; Z90.49 Acquired absence of other specified parts of digestive tract; Z90.710 Acquired absence of both cervix and uterus; Z98.891 History of uterine scar from previous surgery

== ENCOUNTER → 2018-02-12 | Outpatient (CLI) | payer MEDICARE, MEDICAID ==
[~2018-02-12] MED LIST changes: +AMBIEN10 M1 PO; +ATIVAN1 MG PO; +CYMBALTA60 MG PO; +DILTIAZEM 24HR120 MG PO; +GEMFIBROZIL600 MG PO; +OXYCONTIN10 M1 PO; +Percocet 325 MG1 TAB PO; -REQUIP0.5 MG PO; +REQUIP1 M1 PO; +REXULTI2 MG PO; +SEPTDS PO; +XARE20MG PO; +ZOFRAN4 MG PO
[2018-02-12 12:30] LABS: BASO % 0.3 % (0.0-1.0); EOS # 0.1 10*3/uL (0.0-0.4); EOS % 1.2 % (1.0-4.0); HEMATOCRIT 43.6 % (37.0-47.0); HEMOGLOBIN 13.7 g/dl (12.0-16.0); LYMPH # 3.6 10*3/uL (1.3-4.4); LYMPH % 39.6 % (27.0-41.0); MEAN CELL VOLUME 89.5 fl (81.0-99.0); MEAN CORPUSCULAR HGB 28.1 pg (27.0-31.0); MEAN CORPUSCULAR HGB CONC 31.4 g/dl (33.0-37.0); MEAN PLATELET VOLUME 10.4 fl (9.6-12.3); MONO # 0.6 10*3/uL (0.1-1.0); MONO % 6.3 % (3.0-9.0); NEUT # 4.8 10*3/uL (2.3-7.9); NEUT % 52.2 % (47.0-73.0); PLATELET COUNT AUTOMATED 313 10*3/uL (130-400); RED BLOOD COUNT 4.87 10*6/uL (4.10-5.10); RED CELL DISTRI WIDTH 15.4 % (0-14.5); WHITE BLOOD COUNT 9.2 10*3/uL (4.8-10.8)
[2018-02-12 12:31] LABS: BILIRUBIN NEGATIVE (NEGATIVE); BLOOD NEGATIVE (NEGATIVE); CLARITY SL CLOUDY (CLEAR); COLOR YELLOW (YELLOW); GLUCOSE NEGATIVE (NEGATIVE); KETONE NEGATIVE (NEGATIVE); LEUKO ESTERASE NEGATIVE (NEGATIVE); NITRITE NEGATIVE (NEGATIVE); PH 7.5 (5.0-9.0); UROBILINOGEN 0.2 E.U./dl (0.2-1.0)
[2018-02-12 13:04] LABS: ALBUMIN 3.8 gm/dl (3.1-4.5); ALKALINE PHOSPHATASE 114 U/L (45-117); BUN 10 mg/dl (7-24); CHLORIDE 103 mmol/L (98-107); CREATININE 0.67 mg/dL (0.55-1.02); POTASSIUM 4.6 mmol/L (3.5-5.1); SGOT/AST 14 IU/L (3-35); SGPT/ALT 20 U/L (12-78); SODIUM 138 mmol/L (136-145); TOTAL PROTEIN 7.5 gm/dL (6.4-8.2)
[2018-02-12 13:13] LABS: BACTERIA 2+
== END | disposition home or self-care (01) ==
LOC: SDC 10:27
PROVIDERS: Orthopaedic Surgery
DX: M17.12 Unilateral primary osteoarthritis, left knee (principal); Z01.810 Encounter for preprocedural cardiovascular examination; Z01.812 Encounter for preprocedural laboratory examination; Z01.818 Encounter for other preprocedural examination

== ENCOUNTER 2018-02-19 04:25 | Inpatient (IN) | payer MEDICARE, MEDICAID ==
[~2018-02-19] VITALS: Ht 170.1 cm
[2018-02-19] VITALS (12 sets, daily range): BP systolic 91–113; BP diastolic 37–61
[~2018-02-19 04:25] MED LIST changes: -OXYCONTIN10 M1 PO; -Percocet 325 MG1 TAB PO; -REXULTI2 MG PO
[2018-02-19] MEDS ORDERED: REXULTI2 MG PO (12:45)
[2018-02-20] VITALS: BP 131/76
[2018-02-20 06:21] LABS: BASO % 0.1 % (0.0-1.0); HEMATOCRIT 32.5 % (37.0-47.0); HEMOGLOBIN 9.8 g/dl (12.0-16.0); LYMPH # 1.6 10*3/uL (1.3-4.4); LYMPH % 11.5 % (27.0-41.0); MEAN CELL VOLUME 93.7 fl (81.0-99.0); MEAN CORPUSCULAR HGB 28.2 pg (27.0-31.0); MEAN CORPUSCULAR HGB CONC 30.2 g/dl (33.0-37.0); MEAN PLATELET VOLUME 11.5 fl (9.6-12.3); MONO # 1.1 10*3/uL (0.1-1.0); MONO % 8.2 % (3.0-9.0); NEUT # 11.1 10*3/uL (2.3-7.9); NEUT % 79.7 % (47.0-73.0); PLATELET COUNT AUTOMATED 236 10*3/uL (130-400); RED BLOOD COUNT 3.47 10*6/uL (4.10-5.10); RED CELL DISTRI WIDTH 15.6 % (0-14.5)
[2018-02-20 06:38] LABS: BUN 8 mg/dl (7-24); CHLORIDE 107 mmol/L (98-107); CREATININE 0.56 mg/dL (0.55-1.02); PHOSPHOROUS 2.8 mg/dL (2.5-4.9); POTASSIUM 3.8 mmol/L (3.5-5.1); SODIUM 141 mmol/L (136-145)
[2018-02-20 06:44] LABS: THYROID STIM HORMONE (HS) 0.254 uIU/ml (0.358-4.75)
[2018-02-20 08:00] VITALS: BP 162/74
[2018-02-20 09:49] LABS: VITAMIN D, 25-HYDROXY 22.4 ng/mL (30-100)
[2018-02-20 12:00] VITALS: BP 138/50
[2018-02-20 16:00] VITALS: BP 119/45
[2018-02-20 20:00] VITALS: BP 123/48
[2018-02-21] VITALS: BP 149/73
[2018-02-21 07:05] LABS: BASO % 0.2 % (0.0-1.0); EOS # 0.2 10*3/uL (0.0-0.4); EOS % 1.8 % (1.0-4.0); HEMATOCRIT 29.9 % (37.0-47.0); HEMOGLOBIN 9.3 g/dl (12.0-16.0); LYMPH # 3.3 10*3/uL (1.3-4.4); LYMPH % 30.1 % (27.0-41.0); MEAN CELL VOLUME 91.4 fl (81.0-99.0); MEAN CORPUSCULAR HGB 28.4 pg (27.0-31.0); MEAN CORPUSCULAR HGB CONC 31.1 g/dl (33.0-37.0); MEAN PLATELET VOLUME 11.1 fl (9.6-12.3); MONO # 0.8 10*3/uL (0.1-1.0); MONO % 6.9 % (3.0-9.0); NEUT # 6.7 10*3/uL (2.3-7.9); NEUT % 60.5 % (47.0-73.0); PLATELET COUNT AUTOMATED 233 10*3/uL (130-400); RED BLOOD COUNT 3.27 10*6/uL (4.10-5.10); RED CELL DISTRI WIDTH 15.5 % (0-14.5)
[2018-02-21 08:00] VITALS: BP 144/62
[2018-02-21 12:00] VITALS: BP 142/60
[2018-02-21 16:00] VITALS: BP 131/44
[2018-02-21 20:00] VITALS: BP 137/55
[2018-02-22] VITALS: BP 137/56
[2018-02-22 02:00] VITALS: BP 137/56
[2018-02-22 06:47] LABS: BASO % 0.3 % (0.0-1.0); EOS # 0.2 10*3/uL (0.0-0.4); EOS % 2.2 % (1.0-4.0); HEMATOCRIT 31.2 % (37.0-47.0); HEMOGLOBIN 9.7 g/dl (12.0-16.0); LYMPH # 2.9 10*3/uL (1.3-4.4); LYMPH % 29.8 % (27.0-41.0); MEAN CORPUSCULAR HGB 28.3 pg (27.0-31.0); MEAN CORPUSCULAR HGB CONC 31.1 g/dl (33.0-37.0); MEAN PLATELET VOLUME 11.2 fl (9.6-12.3); MONO # 0.7 10*3/uL (0.1-1.0); MONO % 6.8 % (3.0-9.0); NEUT # 5.8 10*3/uL (2.3-7.9); NEUT % 60.4 % (47.0-73.0); RED BLOOD COUNT 3.43 10*6/uL (4.10-5.10); RED CELL DISTRI WIDTH 15.5 % (0-14.5); WHITE BLOOD COUNT 9.7 10*3/uL (4.8-10.8)
[2018-02-22 06:49] LABS: PLATELET COUNT AUTOMATED 338 10*3/uL (130-400)
[2018-02-22 08:00] VITALS: BP 138/52
[2018-02-22] MEDS ORDERED: OXYCONTIN10 M1 PO (09:33)
[2018-02-22] MEDS ORDERED: Percocet 325 MG1 TAB PO (09:33)
== END 2018-02-22 11:28 | disposition home health service (06) | DRG 470 ==
LOC: SDC 04:25 → 4E 07:10 → SDC 07:30 → 4E 02-22 11:28
PROVIDERS: Orthopaedic Surgery; Student in an Organized Health Care Education/Training Program
PROC: 0SRD069 Replacement of Left Knee Joint with Oxidized Zirconium on Polyethylene Synthetic Substitute, Cemented, Open Approach (ICD-10-PCS; principal; 2018-02-19)
DX: M17.12 Unilateral primary osteoarthritis, left knee (principal); E11.65 Type 2 diabetes mellitus with hyperglycemia; I95.9 Hypotension, unspecified; I10 Essential (primary) hypertension; E78.1 Pure hyperglyceridemia; E55.9 Vitamin D deficiency, unspecified; K21.9 Gastro-esophageal reflux disease without esophagitis; D72.829 Elevated white blood cell count, unspecified; D64.9 Anemia, unspecified; E53.8 Deficiency of other specified B group vitamins; G25.81 Restless legs syndrome; F32.9 Major depressive disorder, single episode, unspecified; F41.1 Generalized anxiety disorder; G47.00 Insomnia, unspecified; G43.909 Migraine, unspecified, not intractable, without status migrainosus; Z90.49 Acquired absence of other specified parts of digestive tract; Z90.710 Acquired absence of both cervix and uterus; Z71.6 Tobacco abuse counseling; Z72.0 Tobacco use; Z79.899 Other long term (current) drug therapy; Z80.41 Family history of malignant neoplasm of ovary; Z88.0 Allergy status to penicillin; Z91.040 Latex allergy status; Z79.82 Long term (current) use of aspirin

== ENCOUNTER → 2018-03-12 | Outpatient (CLI) | payer MEDICARE, MEDICAID ==
[~2018-03-12] MED LIST changes: +OXYCONTIN10 M1 PO; +Percocet 325 MG1 TAB PO; +REXULTI2 MG PO
== END | disposition home or self-care (01) ==
LOC: ORTHO 01:49
DX: Z47.1 Aftercare following joint replacement surgery (principal); M25.462 Effusion, left knee; Z96.652 Presence of left artificial knee joint

== ENCOUNTER → 2018-05-15 | Outpatient (CLI) | payer MEDICARE, MEDICAID ==
[2018-05-15 09:36] LABS: BASO % 0.4 % (0.0-1.0); EOS # 0.2 10*3/uL (0.0-0.4); HEMATOCRIT 41.9 % (37.0-47.0); HEMOGLOBIN 13.1 g/dl (12.0-16.0); LYMPH % 39.6 % (27.0-41.0); MEAN CELL VOLUME 86.9 fl (81.0-99.0); MEAN CORPUSCULAR HGB 27.2 pg (27.0-31.0); MEAN CORPUSCULAR HGB CONC 31.3 g/dl (33.0-37.0); MEAN PLATELET VOLUME 10.9 fl (9.6-12.3); MONO # 0.6 10*3/uL (0.1-1.0); MONO % 8.5 % (3.0-9.0); NEUT # 3.7 10*3/uL (2.3-7.9); NEUT % 49.2 % (47.0-73.0); PLATELET COUNT AUTOMATED 275 10*3/uL (130-400); RED BLOOD COUNT 4.82 10*6/uL (4.10-5.10); RED CELL DISTRI WIDTH 15.9 % (0-14.5); WHITE BLOOD COUNT 7.5 10*3/uL (4.8-10.8)
[2018-05-15 09:53] LABS: ALBUMIN 3.8 gm/dl (3.1-4.5); ALKALINE PHOSPHATASE 130 U/L (45-117); BUN 16 mg/dl (7-24); CHLORIDE 105 mmol/L (98-107); CHOLESTEROL 280 mg/dL (<200); CREATININE 0.72 mg/dL (0.55-1.02); HDL CHOLESTEROL 49 mg/dl (40-60); LDL CHOLESTEROL 181 mg/dL (9-159); POTASSIUM 5.2 mmol/L (3.5-5.1); SGOT/AST 8 IU/L (3-35); SGPT/ALT 17 U/L (12-78); SODIUM 139 mmol/L (136-145); TOTAL PROTEIN 7.3 gm/dL (6.4-8.2); TRIGLYCERIDES 252 mg/dl (<150); VLDL CHOLESTEROL 50 mg/dL (6-40)
== END | disposition home or self-care (01) ==
LOC: LAB 09:06
PROVIDERS: Internal Medicine
DX: E11.9 Type 2 diabetes mellitus without complications (principal); E78.2 Mixed hyperlipidemia; E55.9 Vitamin D deficiency, unspecified

== ENCOUNTER → 2018-08-21 | Outpatient (CLI) | payer MEDICARE, MEDICAID ==
[~2018-08-21] MED LIST changes: +NORCO 5-325 TA1 EACH PO
== END | disposition home or self-care (01) ==
LOC: ORTHO 00:58
DX: Z47.1 Aftercare following joint replacement surgery (principal); M17.11 Unilateral primary osteoarthritis, right knee; Z96.652 Presence of left artificial knee joint

== ENCOUNTER 2018-09-22 14:33 | Emergency (ER) | payer MEDICARE, MEDICAID ==
[~2018-09-22] VITALS: Ht 170.1 cm; Wt 74.4 kg
[~2018-09-22 14:33] MED LIST changes: -NORCO 5-325 TA1 EACH PO
[2018-09-22] MEDS ORDERED: NORCO 5-325 TA1 EACH PO (16:27)
== END 2018-09-22 16:39 | disposition home or self-care (01) ==
LOC: ED 14:33
DX: S82.832A Other fracture of upper and lower end of left fibula, initial encounter for closed fracture (principal); S82.892A Other fracture of left lower leg, initial encounter for closed fracture; F17.200 Nicotine dependence, unspecified, uncomplicated; Z88.0 Allergy status to penicillin; Z91.040 Latex allergy status; Z79.82 Long term (current) use of aspirin; Z79.84 Long term (current) use of oral hypoglycemic drugs; Z79.899 Other long term (current) drug therapy; Z90.710 Acquired absence of both cervix and uterus; Z90.49 Acquired absence of other specified parts of digestive tract; W06.XXXA Fall from bed, initial encounter; Y93.89 Activity, other specified; Y92.89 Other specified places as the place of occurrence of the external cause; Y99.8 Other external cause status

== ENCOUNTER → 2018-11-15 | Outpatient (CLI) | payer MEDICARE, MEDICAID ==
[~2018-11-15] MED LIST changes: +NORCO 5-325 TA1 EACH PO
== END | disposition home or self-care (01) ==
LOC: ORTHO 02:21
DX: S82.892D Other fracture of left lower leg, subsequent encounter for closed fracture with routine healing (principal); X58.XXXD Exposure to other specified factors, subsequent encounter

== ENCOUNTER → 2018-12-13 | Outpatient (CLI) | payer OTHER, MEDICAID ==
[~2018-12-13] MED LIST changes: +NAPROSYN500 MG PO
== END | disposition home or self-care (01) ==
LOC: ORTHO 02:25
DX: S82.892D Other fracture of left lower leg, subsequent encounter for closed fracture with routine healing (principal); X58.XXXD Exposure to other specified factors, subsequent encounter

== ENCOUNTER → 2019-01-17 | Outpatient (CLI) | payer OTHER, MEDICAID | END | disposition home or self-care (01) | LOC: ORTHO 03:36 | DX: S82.892D Other fracture of left lower leg, subsequent encounter for closed fracture with routine healing (principal); X58.XXXD Exposure to other specified factors, subsequent encounter ==

== ENCOUNTER 2019-03-05 11:09 | Emergency (ER) | payer OTHER, MEDICAID ==
[~2019-03-05] VITALS: Ht 170.1 cm; Wt 77.1 kg
[~2019-03-05 11:09] MED LIST changes: -NAPROSYN500 MG PO
[2019-03-05] MEDS ORDERED: NAPROSYN500 MG PO (12:02)
== END 2019-03-05 12:15 | disposition home or self-care (01) ==
LOC: ED 11:09
DX: K08.89 Other specified disorders of teeth and supporting structures (principal); F17.200 Nicotine dependence, unspecified, uncomplicated; Z88.0 Allergy status to penicillin; Z91.040 Latex allergy status; Z79.82 Long term (current) use of aspirin; Z79.899 Other long term (current) drug therapy; Z79.84 Long term (current) use of oral hypoglycemic drugs; Z90.710 Acquired absence of both cervix and uterus; Z90.49 Acquired absence of other specified parts of digestive tract

== ENCOUNTER → 2019-05-07 | Outpatient (CLI) | payer OTHER, MEDICAID ==
[~2019-05-07] MED LIST changes: +NAPROSYN500 MG PO
== END | disposition home or self-care (01) ==
LOC: MAMMO 07:12
DX: Z12.31 Encounter for screening mammogram for malignant neoplasm of breast (principal)

== ENCOUNTER → 2019-05-14 | Outpatient (CLI) | payer OTHER, MEDICAID | END | disposition home or self-care (01) | LOC: ORTHO 00:41 | DX: M47.817 Spondylosis without myelopathy or radiculopathy, lumbosacral region (principal); M51.37 Other intervertebral disc degeneration, lumbosacral region; M25.551 Pain in right hip; M17.0 Bilateral primary osteoarthritis of knee ==

== ENCOUNTER 2019-07-09 15:31 | Inpatient (IN) | payer OTHER ==
[~2019-07-09] VITALS: Ht 170.1 cm; Wt 79.1 kg
--- NOTE | ~2019-07-09 | EKG ---
[place], [place] ELECTROCARDIOGRAM REPORT NAME: ISSA AGUILERA UNIT #: [id number] ROOM: 402 DOCTOR: CAROL DRAFT REPORT BIRTHDATE: [birth year] [facility] Test Date: 2019-07-09 Test Time: 16:31:27 Pat Name: ISSA AGUILERA Department: Room: 402 Gender: F [employer] Manager Consultant: Lillian Corbett : 1955 Requested By: SAIDA STALLINGS Order Number: [id number] Reading MD: Vinh Barbour MD Measurements Intervals [place] Rate: 115 P: 54 OR: 150 QRS: 5 QRSD: 91 T: 87 QT: 331 QTc: 458 Interpretive Statements Sinus tachycardia Nonspecific repol abnormality, lateral leads No previous ECG available for comparison Electronically Signed On 07-10-2019 4:40:29 PDT by Vinh Barbour MD CM:EKGRPT:ELECTROCARDIOGRAM REPORT [id number] SAIDA MEDINA DRAFT REPORT SAIDA STALLINGS MD
[~2019-07-09 15:31] MED LIST changes: +REQUIP0.5 MG PO; -REQUIP1 M1 PO
[2019-07-09 15:33] VITALS: BP 153/74
[2019-07-09 16:33] LABS: BASO % 0.2 % (0.0-1.0); EOS # 0.1 10*3/uL (0.0-0.4); EOS % 0.5 % (1.0-4.0); HEMATOCRIT 47.1 % (37.0-47.0); HEMOGLOBIN 15.6 g/dl (12.0-16.0); LYMPH # 3.8 10*3/uL (1.3-4.4); LYMPH % 23.4 % (27.0-41.0); MEAN CELL VOLUME 90.6 fl (81.0-99.0); MEAN CORPUSCULAR HGB CONC 33.1 g/dl (33.0-37.0); MEAN PLATELET VOLUME 10.2 fl (9.6-12.3); MONO # 0.8 10*3/uL (0.1-1.0); NEUT # 11.4 10*3/uL (2.3-7.9); NEUT % 70.5 % (47.0-73.0); PLATELET COUNT AUTOMATED 330 10*3/uL (130-400); WHITE BLOOD COUNT 16.1 10*3/uL (4.8-10.8)
[2019-07-09 16:50] LABS: INTERNATIONAL NORM RATIO 1.1 (2.0-3.5)
[2019-07-09 16:52] LABS: ALBUMIN 4.1 gm/dl (3.1-4.5); ALKALINE PHOSPHATASE 148 U/L (45-117); BUN 8 mg/dl (7-24); CHLORIDE 105 mmol/L (98-107); CREATININE 0.71 mg/dL (0.55-1.02); LIPASE 100 U/L (73-393); POTASSIUM 3.7 mmol/L (3.5-5.1); SGOT/AST 35 IU/L (3-35); SGPT/ALT 48 U/L (12-78); SODIUM 140 mmol/L (136-145); TOTAL PROTEIN 8.3 gm/dL (6.4-8.2)
[2019-07-09 16:56] VITALS: BP 146/71
[2019-07-09 16:56] LABS: TROPONIN I < 0.015 ng/ml (<0.045)
[2019-07-09 17:12] LABS: BILIRUBIN NEGATIVE (NEGATIVE); BLOOD TRACE-LYSED (NEGATIVE); CLARITY CLEAR (CLEAR); COLOR YELLOW (YELLOW); GLUCOSE NEGATIVE (NEGATIVE); KETONE NEGATIVE (NEGATIVE); LEUKO ESTERASE NEGATIVE (NEGATIVE); NITRITE NEGATIVE (NEGATIVE); PH 6.5 (5.0-9.0); SPECIFIC GRAVITY 1.015 (1.005-1.030); UROBILINOGEN 0.2 E.U./dl (0.2-1.0)
[2019-07-09 17:23] LABS: BACTERIA TRACE; EPITHELIAL CELLS 0-2; RBC 0-2 rbc/hpf (0-2); WBC 0-2 wbc/hpf (0-5)
[2019-07-09 17:56] VITALS: BP 153/68
--- NOTE | 2019-07-09 18:36 | NUR ---
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
--- NOTE | 2019-07-09 19:13 | NUR ---
PT RESTING IN BED NO REQUESTS AT THIS TIME BED IN LOWEST POSITION BED RAILS UP X 2 CALL LIGHT IN REACH
[2019-07-09 20:30] VITALS: BP 178/78
--- NOTE | 2019-07-09 20:30 | NUR ---
A 64, admitted to , under the services of HARSHAL Clarke DO with a diagnosis of SEPSIS, PARTIAL SMALL BOWEL OBSTRUCTION. Chief complaint is ABD PAIN, VOMITTING. Patient arrived via wheel chair from ER. Monitor applied. Initial assessment completed. Vital signs taken and recorded. HARSHAL CLARKE DO notified of admission to the unit. Orders received. See assessment for past medical history, medications and allergies. Patient and/or family oriented to unit. [address] visitation policy reviewed. Clothing/patient valuable form completed. AMPARO ARAIZA
--- NOTE | 2019-07-09 21:00 | NUR ---
PT RESTING COMFORTABLY AT THIS TIME. RESPS ARE EASY AND NONLABORED. NO S/S OF DISTRESS NOTED. BED IS LOW, CALL LIGHT WITHIN REACH. WILL CONTINUE TO MONITOR.
--- NOTE | 2019-07-09 21:13 | NUR ---
PT MEDICATED WITH PRN MORPHINE FOR PAIN RATED A 10/10. WILL MONITOR FOR EFFECTIVENESS.
--- NOTE | 2019-07-09 21:59 | NUR ---
PT RESTING COMFORTABLY WITH NO S/S OF DISTRESS. PRN MORPHINE EFFECTIVE.
[2019-07-10] VITALS: BP 116/47
--- NOTE | 2019-07-10 06:48 | NUR ---
ATTEMPTED TO CALL DR. NAPOLES AWAITING CALL BACK.
[2019-07-10 07:15] LABS: BASO % 0.1 % (0.0-1.0); EOS # 0.1 10*3/uL (0.0-0.4); EOS % 1.1 % (1.0-4.0); HEMATOCRIT 39.9 % (37.0-47.0); HEMOGLOBIN 12.8 g/dl (12.0-16.0); LYMPH # 3.1 10*3/uL (1.3-4.4); LYMPH % 34.2 % (27.0-41.0); MEAN CELL VOLUME 92.4 fl (81.0-99.0); MEAN CORPUSCULAR HGB 29.6 pg (27.0-31.0); MEAN CORPUSCULAR HGB CONC 32.1 g/dl (33.0-37.0); MEAN PLATELET VOLUME 10.5 fl (9.6-12.3); MONO # 0.6 10*3/uL (0.1-1.0); MONO % 6.5 % (3.0-9.0); NEUT # 5.2 10*3/uL (2.3-7.9); NEUT % 57.9 % (47.0-73.0); RED BLOOD COUNT 4.32 10*6/uL (4.10-5.10); RED CELL DISTRI WIDTH 16.2 % (0-14.5)
[2019-07-10 07:19] LABS: PLATELET COUNT AUTOMATED 220 10*3/uL (130-400)
[2019-07-10 08:00] VITALS: BP 143/64
[2019-07-10] MEDS ORDERED: GLUCOPHAGE500 M1 PO (08:38)
[2019-07-10 08:39] LABS: ALBUMIN 2.9 gm/dl (3.1-4.5); ALKALINE PHOSPHATASE 101 U/L (45-117); BUN 6 mg/dl (7-24); CHLORIDE 112 mmol/L (98-107); CHOLESTEROL 183 mg/dL (<200); CREATININE 0.49 mg/dL (0.55-1.02); FREE T4 0.94 ng/dl (0.76-1.46); HDL CHOLESTEROL 53 mg/dl (40-60); LDL CHOLESTEROL 81 mg/dL (9-159); PHOSPHOROUS 3.3 mg/dL (2.5-4.9); POTASSIUM 3.5 mmol/L (3.5-5.1); SGOT/AST 15 IU/L (3-35); SGPT/ALT 29 U/L (12-78); SODIUM 142 mmol/L (136-145); TOTAL PROTEIN 5.7 gm/dL (6.4-8.2); TRIGLYCERIDES 243 mg/dl (<150); VLDL CHOLESTEROL 49 mg/dL (6-40)
[2019-07-10] MEDS ORDERED: VITAMIN D22000 UNIT PO (08:40)
[2019-07-10] MEDS ORDERED: ROSUVASTATIN CA10 MG PO (08:43)
[2019-07-10 08:48] LABS: VITAMIN D, 25-HYDROXY 45.2 ng/mL (30-100)
[2019-07-10] MEDS ORDERED: AMITRIPTYLINE25 MG PO (08:49)
--- NOTE | 2019-07-10 09:00 | NUR ---
Chuck Wagon Cook in to talk to patient. Patient states lives at home with alone. There are none steps in the home. Physician: radha grey [facility]acy: [facility] Home health services: none Patient's level of ADLs: INDEPENDENT Patient has working utilities: all working DME: none Follow-up physician's appointment after d/c: will be made by hospitalist nurse director upon discharge Does patient want to access PORTAL?: no Discharge plan discussed with patient, she states she lives at in an apartment alone, she is independent in adls and ambualtion, she states she will return home when able and denies any home needs. JERSON PADILLA
[2019-07-10 12:00] VITALS: BP 154/66
--- NOTE | 2019-07-10 13:34 | NUR ---
PT MEDICATED WITH ATIVAN 1MG PO AT HER REQUEST FOR ANXIETY.
--- NOTE | 2019-07-10 15:30 | NUR ---
ASSUMED CARE FOR THIS PT AT THIS TIME. NO C/O VOICED AT PRESENT TIME. CALL LIGHT IN REACH.
--- NOTE | 2019-07-10 15:35 | NUR ---
Pt. c.o GARAY. Medicated as ordered. Pt verbalized relief. Resp are easy and non-labored.
[2019-07-10 16:00] VITALS: BP 120/90; BP 154/70
--- NOTE | 2019-07-10 20:01 | NUR ---
DR. MARQUIS NOTIFIED THAT PT'S HOME MEDS HAVE NOT BEEN CONTINUED AND PT REQUESTING AMBIEN AND ELAVIL. TO TAKE A LOOK AT THESE.
[2019-07-10 20:39] VITALS: BP 142/84
--- NOTE | 2019-07-10 21:29 | NUR ---
PT MEDICATED W/NORCO FOR C/O RLQ PAIN 10/10 AND ZOFRAN FOR C/O NAUSEA. WILL MONITOR FOR EFFECTIVENESS.
--- NOTE | 2019-07-10 22:00 | NUR ---
DR. ALSTON NOTIFIED OF PT'S HOME MEDS NEEDING CONTINUED. WILL TAKE A LOOK AT MED REC
[2019-07-11] VITALS: BP 154/45
--- NOTE | 2019-07-11 07:38 | NUR ---
PT MEDICATED WITH PRN ZOFRAN FOR C/O NAUSEA. WILL MONITOR FOR EFFECTIVESS.
[2019-07-11 08:00] VITALS: BP 124/80
--- NOTE | 2019-07-11 09:00 | NUR ---
case management visits with patient, she states she will be returning home when able and denies any home needs
--- NOTE | 2019-07-11 09:36 | NUR ---
PATIENT HAS CONTINUED NAUSEA DESPITE ZOFRAN. CALLED DR GRACE FOR PHENERGAN ORDER. ONE TIME ORDER OBTAINED.
--- NOTE | 2019-07-11 11:45 | NUR ---
My [facility] Metal Painter- Shala ([phone]), called in to check on the patient. She stated that she went to visit the patient on 07/08/19 as an intial assessment but the patient did not answer the door. She asked for an update. DRAPERY SEWER HAND provided an update. -ELIA Rizvi
[2019-07-11 12:00] VITALS: BP 150/69
--- NOTE | 2019-07-11 15:59 | NUR ---
PATIENT RECEIVED ZOFRAN FOR RETURN OF NAUSEA.
[2019-07-11 17:00] VITALS: BP 152/61
--- NOTE | 2019-07-11 18:17 | NUR ---
ZOFRAN EFFECTIVE. PATIENT ABLE TO TOLERATE SYMPTOMS.
[2019-07-11 20:00] VITALS: BP 160/80; BP 170/76
--- NOTE | 2019-07-11 21:05 | NUR ---
PRN ATIVAN AND ZOFRAN ADMINISTERED PRESCRIBED. WILL CONTINUE TO MONITOR.
[2019-07-12] VITALS: BP 156/82
--- NOTE | 2019-07-12 04:54 | NUR ---
PRN ZOFRAN ADMINISTERED FOR PT C/O NAUSEA. WILL CONTINUE TO MONITOR.
[2019-07-12 06:34] LABS: BASO % 0.1 % (0.0-1.0); EOS % 0.3 % (1.0-4.0); HEMATOCRIT 40.3 % (37.0-47.0); HEMOGLOBIN 13.1 g/dl (12.0-16.0); LYMPH % 21.5 % (27.0-41.0); MEAN CELL VOLUME 91.2 fl (81.0-99.0); MEAN CORPUSCULAR HGB 29.6 pg (27.0-31.0); MEAN CORPUSCULAR HGB CONC 32.5 g/dl (33.0-37.0); MEAN PLATELET VOLUME 10.3 fl (9.6-12.3); MONO # 0.5 10*3/uL (0.1-1.0); MONO % 5.9 % (3.0-9.0); NEUT # 6.6 10*3/uL (2.3-7.9); NEUT % 71.8 % (47.0-73.0); PLATELET COUNT AUTOMATED 237 10*3/uL (130-400); RED BLOOD COUNT 4.42 10*6/uL (4.10-5.10); RED CELL DISTRI WIDTH 15.7 % (0-14.5); WHITE BLOOD COUNT 9.2 10*3/uL (4.8-10.8)
[2019-07-12 06:46] LABS: BUN 5 mg/dl (7-24); CHLORIDE 105 mmol/L (98-107); CREATININE 0.43 mg/dL (0.55-1.02); POTASSIUM 3.4 mmol/L (3.5-5.1); SODIUM 140 mmol/L (136-145)
[2019-07-12 09:00] VITALS: BP 148/63
[2019-07-12 12:00] VITALS: BP 147/68
[2019-07-12 16:00] VITALS: BP 153/77
[2019-07-12 20:00] VITALS: BP 160/59
--- NOTE | 2019-07-12 21:59 | NUR ---
PRN NORCO ADMINISTERED PRESCRIBED FOR PT C/O H/A RATED A 6/10. WILL CONTINUE TO MONITOR AND REASSESS. CALL LIGHT IN REACH.
[2019-07-13] VITALS: BP 158/72
[2019-07-13 06:32] LABS: ALBUMIN 2.7 gm/dl (3.1-4.5); ALKALINE PHOSPHATASE 101 U/L (45-117); BUN 5 mg/dl (7-24); CHLORIDE 106 mmol/L (98-107); CREATININE 0.34 mg/dL (0.55-1.02); POTASSIUM 3.4 mmol/L (3.5-5.1); SGOT/AST 21 IU/L (3-35); SGPT/ALT 21 U/L (12-78); SODIUM 140 mmol/L (136-145); TOTAL PROTEIN 5.7 gm/dL (6.4-8.2)
[2019-07-13 06:38] LABS: BASO % 0.1 % (0.0-1.0); EOS # 0.1 10*3/uL (0.0-0.4); EOS % 1.6 % (1.0-4.0); HEMATOCRIT 37.3 % (37.0-47.0); LYMPH # 2.2 10*3/uL (1.3-4.4); MEAN CORPUSCULAR HGB 29.9 pg (27.0-31.0); MEAN CORPUSCULAR HGB CONC 32.2 g/dl (33.0-37.0); MEAN PLATELET VOLUME 10.6 fl (9.6-12.3); MONO # 0.6 10*3/uL (0.1-1.0); MONO % 7.4 % (3.0-9.0); NEUT # 4.8 10*3/uL (2.3-7.9); NEUT % 62.3 % (47.0-73.0); PLATELET COUNT AUTOMATED 221 10*3/uL (130-400); RED BLOOD COUNT 4.01 10*6/uL (4.10-5.10); RED CELL DISTRI WIDTH 15.5 % (0-14.5); WHITE BLOOD COUNT 7.7 10*3/uL (4.8-10.8)
[2019-07-13 08:00] VITALS: BP 147/64
[2019-07-13 12:00] VITALS: BP 153/69
--- NOTE | 2019-07-13 14:04 | NUR ---
RED SWOLLEN TENDER AREA NOTED ON PT'S LOWER ABD RIGHT SIDE. PT STATED THAT SHE JUST NOTICED TODAY WHILE WASHING UP. DOES NOT WANT ANY PHOTO TAKEN OR MEASUREMENTS STATES SHE JUST WANTED TO MENTION IT. I STATED I WOULD LET THE DR KNOW BECAUSE IT MAY NEED ABX TREATMENT DUE TO THE REDNESS AND TENDERNESS OF IT. I NOTIFIED DR MARTIN ABOUT THIS AREA AND POSSIBLE NEED FOR TREATMENT.
[2019-07-13 16:00] VITALS: BP 148/50
--- NOTE | 2019-07-13 16:16 | NUR ---
PT MEDICATED WITH NORCO FOR C/O CHRONIC BACK PAIN.
[2019-07-13 20:00] VITALS: BP 154/73
--- NOTE | 2019-07-13 20:49 | NUR ---
IN TO ASSESS PATIENT. ALETR AND ORIENTED, PLEASANT AND COOEPRATIVE. STATES SHES READY TO GO HOME. DENIES SOB ON ROOM AIR, LUNGS CLEAR T/O. DENIES CP, NO EDEMA. NORMOACTIVE BOWELS X4 QUADS, STATES SHE HAS NOT HAD A BOWEL MOVEMEMENT SINCE SUNDAY, BUT THAT SHE FEELS FINE. ABD SOFTLY DISTENDED. C/O MINIMAL DISCOMFORT IN THE RIGHT LOWER QUADRANT ON PALPATION. DENIES DYSURIA. IV FLUIDS INFUSING. CALL LIGHT WITHIN REACH, WILL MONITOR
--- NOTE | 2019-07-13 22:05 | NUR ---
PRN NORCO GIVEN FOR PT COMPLAINTS OF 8/10 BACK PAIN. CALL LIGHT WITHIN REACH, WILL MONITOR
--- NOTE | 2019-07-13 23:00 | NUR ---
PRN MEDICATION EFFECTIVE PER PT
[2019-07-14] VITALS: BP 130/72; BP 171/81
--- NOTE | 2019-07-14 07:46 | NUR ---
ISSA AGUILERA [id number] Please refer to the physician's history and physical for past medical history, comorbid conditions, and allergies. Diagnosis: SEPSIS, PARTIAL SMALL BOWEL OBSTRUCTION Chang Score: 22,LOW OR NO RISK WOUND DESCRIPTIONS: Wound Number: 1 Location of the wound: right lower abdomen Thickness: Partial Size: 1.0cm x 2.5cm x <0.1cm Tunneling: none Undermining: none Sinus Tract: none Presence of Exudate: none Amount: None Color: Red Odor: None Periwound Skin Appearance: Normal Wound edges: approximated Pain (associated with wound): tender to touch How does patient state this happened? pt stated she gets these abscesses all the time. Surface the patient is resting on: Position Pro SKIN PREVENTION RECOMMENDATION: 1. Pressure redistribution support surface as appropriate 2. Elevate heels 3. Remove boots/TEDS every shift and reapply 4. Head of bed 30 degrees as tolerated 5. Assess nutrition and hydration 6. Manage moisture 7. Avoid the use of containment devices while in bed 8. Use absorptive products on surfaces limit layers of linens on bed 9. Turn and reposition every 1-2 hours in bed and every 1 hour in chair as tolerated 10. Weight shifts every 15 minutes while up in chair 11. Offloading with pillows or device to keep heels elevated off bed 12. Monitor skin at least every shift 13. Inspect under medical devices twice a day WOUND TREATMENT RECOMMENDATIONS: At this time since surgery is already on consult have them evaluate abdomen since patient has a history of abscesses.
[2019-07-14 08:00] VITALS: BP 158/73
[2019-07-14 08:07] LABS: BUN 4 mg/dl (7-24); CHLORIDE 103 mmol/L (98-107); CREATININE 0.37 mg/dL (0.55-1.02); POTASSIUM 3.9 mmol/L (3.5-5.1); SODIUM 137 mmol/L (136-145)
--- NOTE | 2019-07-14 09:00 | NUR ---
case management visits with patient, she states she will return home when medically stable and denies any home needs
--- NOTE | 2019-07-14 09:37 | NUR ---
Dr. Posada notified of wound care recommendations.
--- NOTE | 2019-07-14 11:10 | NUR ---
PT TOLERATING SOLID FOODS WITH NO PROBLEM. DENIES ANY N/V/D OR ABD PAIN.
--- NOTE | 2019-07-14 11:30 | NUR ---
PT HAD SMALL FORMED BOWEL MOVEMENT.
--- NOTE | 2019-07-14 12:15 | NUR ---
Discharge instructions reviewed with patient/family. Patient receptive and verbalizes understanding. Follow-up care arranged. Written instructions given to patient/family. HIGINIO LORENZO
--- NOTE | 2019-07-14 12:19 | NUR ---
PT DISCHARGED AT THIS TIME WITH FRIEND TO HOME.
--- NOTE | 2019-07-14 13:01 | NUR ---
Occupational Therapy referral received but patient discharged before OT evaluaiton. Juliette Russ OTR/L
--- NOTE | 2019-07-15 13:11 | NUR ---
[employer] WORKER HELPER received call from patients Content Management Specialist Shala- [phone]. [employer] WORKER HELPER left message for a return call. -ELIA Rizvi
--- NOTE | 2019-07-16 09:39 | NUR ---
PERSONAL CONSULTANT recieved call from [employer] Furniture Painter Shala- [phone]- asking for an update. PERSONAL CONSULTANT provided update.
== END 2019-07-14 12:19 | disposition home or self-care (01) | DRG 389 ==
LOC: ED 15:31 → EDHOLD 18:28 → 4E 18:28
PROVIDERS: Emergency Medicine; Family Medicine; Internal Medicine; Student in an Organized Health Care Education/Training Program; ADMIT Internal Medicine
DX: K56.600 Partial intestinal obstruction, unspecified as to cause (principal); R65.10 Systemic inflammatory response syndrome (SIRS) of non-infectious origin without acute organ dysfunction; K21.9 Gastro-esophageal reflux disease without esophagitis; F17.210 Nicotine dependence, cigarettes, uncomplicated; G47.00 Insomnia, unspecified; F41.1 Generalized anxiety disorder; E11.65 Type 2 diabetes mellitus with hyperglycemia; I10 Essential (primary) hypertension; E78.1 Pure hyperglyceridemia; E55.9 Vitamin D deficiency, unspecified; F32.9 Major depressive disorder, single episode, unspecified; G25.81 Restless legs syndrome; Z96.652 Presence of left artificial knee joint; G43.909 Migraine, unspecified, not intractable, without status migrainosus; M19.90 Unspecified osteoarthritis, unspecified site; I48.2 Chronic atrial fibrillation; Z71.6 Tobacco abuse counseling; Z79.01 Long term (current) use of anticoagulants; Z98.891 History of uterine scar from previous surgery; Z90.710 Acquired absence of both cervix and uterus; Z90.49 Acquired absence of other specified parts of digestive tract; Z88.0 Allergy status to penicillin; Z91.040 Latex allergy status; Z80.41 Family history of malignant neoplasm of ovary; Z91.018 Allergy to other foods; Z79.899 Other long term (current) drug therapy; Z79.82 Long term (current) use of aspirin

== ENCOUNTER → 2019-09-24 | Outpatient (CLI) | payer OTHER ==
[~2019-09-24] MED LIST changes: +AMITRIPTYLINE25 MG PO; +ROSUVASTATIN CA10 MG PO; +VITAMIN D22000 UNIT PO
== END | disposition home or self-care (01) ==
LOC: ORTHO 01:01
DX: M17.11 Unilateral primary osteoarthritis, right knee (principal)

== ENCOUNTER → 2019-11-25 | Outpatient (CLI) | payer OTHER ==
[2019-11-25 09:28] LABS: ALBUMIN 3.7 gm/dl (3.1-4.5); BUN 13 mg/dl (7-24); CHLORIDE 105 mmol/L (98-107); CHOLESTEROL 209 mg/dL (<200); CREATININE 0.78 mg/dL (0.55-1.02); POTASSIUM 4.8 mmol/L (3.5-5.1); SGOT/AST 21 IU/L (3-35); SGPT/ALT 35 U/L (12-78); SODIUM 140 mmol/L (136-145); TOTAL PROTEIN 7.3 gm/dL (6.4-8.2); TRIGLYCERIDES 304 mg/dl (<150); VLDL CHOLESTEROL 61 mg/dL (6-40)
[2019-11-25 09:35] LABS: HEMATOCRIT 42.3 % (37.0-47.0); HEMOGLOBIN 13.5 g/dl (12.0-16.0); MEAN CELL VOLUME 90.6 fl (81.0-99.0); MEAN CORPUSCULAR HGB 28.9 pg (27.0-31.0); MEAN CORPUSCULAR HGB CONC 31.9 g/dl (33.0-37.0); MEAN PLATELET VOLUME 10.8 fl (9.6-12.3); PLATELET COUNT AUTOMATED 254 10*3/uL (130-400); RED BLOOD COUNT 4.67 10*6/uL (4.10-5.10); RED CELL DISTRI WIDTH 15.1 % (0-14.5); WHITE BLOOD COUNT 10.3 10*3/uL (4.8-10.8)
[2019-11-25 09:36] LABS: ALKALINE PHOSPHATASE 147 U/L (45-117); HDL CHOLESTEROL 49 mg/dl (40-60); LDL CHOLESTEROL 99 mg/dL (9-159)
[2019-11-25 10:03] LABS: PLATELET SUFFICIENCY NORMAL (NORMAL); TOTAL CELLS COUNTED 100 #CELLS
[2019-11-25 10:07] LABS: FREE T4 1.16 ng/dl (0.76-1.46)
== END | disposition home or self-care (01) ==
LOC: LAB 08:25
PROVIDERS: Nurse Practitioner Primary Care
DX: I10 Essential (primary) hypertension (principal); E78.2 Mixed hyperlipidemia; E55.9 Vitamin D deficiency, unspecified; E11.9 Type 2 diabetes mellitus without complications

== ENCOUNTER → 2020-04-21 | Outpatient (CLI) | payer OTHER ==
[~2020-04-21] MED LIST changes: +LOPRESSOR50 M1 PO; +SENNA8.6 MG PO; +SYNTHROID25 MCG PO; +VISTARIL25 MG PO
--- NOTE | 2020-04-21 10:55 | NUR ---
INFORMED CONSENT SIGNED FOR LEXISCAN STRESS TEST WITH DR. JOHNSON. RESTING EKG SINUS BRADYCARDA, HR 59 BP 154/82. PULSE OX 98% AND LUNGS CLEAR BILATERALLY. COMPLETED ONE MINUTE OF LEXISCAN PROTOCOL RECEIVING LEXISCAN 0.4MG OVER 10 SECONDS. RARE PVC NOTED WITH NO ST CHANGES. PT C/O SOB. LAST RECOVERY HR 68, BP 156/78. WAITING NUCLEAR SCANNING IN STABLE CONDITION.
== END | disposition home or self-care (01) ==
LOC: CARD 00:18
DX: I48.0 Paroxysmal atrial fibrillation (principal); R07.89 Other chest pain; R06.02 Shortness of breath

== ENCOUNTER → 2021-01-10 | Outpatient (CLI) | payer MEDICARE | END | disposition home or self-care (01) | LOC: US 12-07 14:30 | PROVIDERS: ATTEND Nurse Practitioner Primary Care | DX: R10.2 Pelvic and perineal pain (principal); N93.9 Abnormal uterine and vaginal bleeding, unspecified; Z90.710 Acquired absence of both cervix and uterus ==

== ENCOUNTER → 2021-04-20 | Outpatient (CLI) | payer MEDICARE | END | disposition home or self-care (01) | LOC: RAD 08:42 | PROVIDERS: ATTEND Nurse Practitioner Primary Care | DX: R06.02 Shortness of breath (principal); M54.9 Dorsalgia, unspecified; M61.9 Calcification and ossification of muscle, unspecified; Z72.0 Tobacco use; Z98.890 Other specified postprocedural states ==

== ENCOUNTER → 2021-04-21 | Outpatient (CLI) | payer MEDICARE | END | disposition home or self-care (01) | LOC: LAB 09:16 | PROVIDERS: ATTEND Orthopaedic Surgery | DX: E11.621 Type 2 diabetes mellitus with foot ulcer (principal) ==

== ENCOUNTER → 2021-07-01 | Outpatient (CLI) | payer MEDICARE | END | disposition home or self-care (01) | LOC: CT 06-30 16:00 | PROVIDERS: ATTEND Nurse Practitioner Primary Care | DX: D35.02 Benign neoplasm of left adrenal gland (principal); R16.1 Splenomegaly, not elsewhere classified; J43.8 Other emphysema; I70.0 Atherosclerosis of aorta ==

== ENCOUNTER 2021-10-28 09:32 | Emergency (ER) | payer MEDICARE ==
[~2021-10-28] VITALS: Ht 170.1 cm; Wt 72.1 kg
[2021-10-28] MEDS ORDERED: CYCLOBENZAPRINE10 MG PO (12:42)
== END 2021-10-28 13:00 | disposition home or self-care (01) ==
LOC: ED 09:32
DX: S16.1XXA Strain of muscle, fascia and tendon at neck level, initial encounter (principal); F17.200 Nicotine dependence, unspecified, uncomplicated; Z88.0 Allergy status to penicillin; Z91.040 Latex allergy status; Z79.899 Other long term (current) drug therapy; Z90.49 Acquired absence of other specified parts of digestive tract; Z98.890 Other specified postprocedural states; Z90.711 Acquired absence of uterus with remaining cervical stump; Z96.652 Presence of left artificial knee joint; X50.0XXA Overexertion from strenuous movement or load, initial encounter; Y93.89 Activity, other specified; Y92.098 Other place in other non-institutional residence as the place of occurrence of the external cause; Y99.8 Other external cause status

== ENCOUNTER → 2022-01-20 | Outpatient (CLI) | payer OTHER ==
[~2022-01-20] MED LIST changes: +CYCLOBENZAPRINE10 MG PO
== END | disposition home or self-care (01) ==
LOC: MRI 01-09 13:00
PROVIDERS: ATTEND Family Medicine
DX: M50.30 Other cervical disc degeneration, unspecified cervical region (principal); M48.02 Spinal stenosis, cervical region; M25.78 Osteophyte, vertebrae; M89.38 Hypertrophy of bone, other site

== ENCOUNTER 2022-03-19 14:06 | Emergency (ER) | payer OTHER ==
[2022-03-19] MEDS ORDERED: JANUVIA25 MG PO (15:02)
[2022-03-19] MEDS ORDERED: VOLTAREN ARTHRI20 GM T (15:53)
== END 2022-03-19 16:20 | disposition home or self-care (01) ==
LOC: ED 14:06
DX: R07.89 Other chest pain (principal); I10 Essential (primary) hypertension; K21.9 Gastro-esophageal reflux disease without esophagitis; M19.90 Unspecified osteoarthritis, unspecified site; E11.9 Type 2 diabetes mellitus without complications; Z88.0 Allergy status to penicillin; Z91.040 Latex allergy status; Z79.899 Other long term (current) drug therapy; Z98.890 Other specified postprocedural states; Z90.49 Acquired absence of other specified parts of digestive tract; Z87.891 Personal history of nicotine dependence

== ENCOUNTER → 2022-10-09 | Outpatient (CLI) | payer OTHER ==
[~2022-10-09] MED LIST changes: +JANUVIA25 MG PO; +VOLTAREN ARTHRI20 GM T
== END | disposition home or self-care (01) ==
LOC: ORTHO 01:51
PROVIDERS: ATTEND Orthopaedic Surgery
DX: M25.562 Pain in left knee (principal); Z96.652 Presence of left artificial knee joint

== ENCOUNTER → 2023-04-02 | Outpatient (CLI) | payer OTHER | END | disposition home or self-care (01) | LOC: ORTHO 01:13 | PROVIDERS: ATTEND Orthopaedic Surgery | DX: M19.012 Primary osteoarthritis, left shoulder (principal) ==

== ENCOUNTER → 2023-05-23 | Outpatient (CLI) | payer OTHER ==
[2023-05-23 10:33] LABS: BASO % 0.5 % (0.0-1.0); EOS # 0.3 10*3/uL (0.0-0.4); EOS % 4.4 % (1.0-4.0); HEMATOCRIT 41.7 % (37.0-47.0); LYMPH # 2.5 10*3/uL (1.3-4.4); MEAN CELL VOLUME 93.1 fl (81.0-99.0); MEAN CORPUSCULAR HGB CONC 33.3 g/dl (33.0-37.0); MONO # 0.6 10*3/uL (0.1-1.0); MONO % 8.2 % (3.0-9.0); NEUT # 4.1 10*3/uL (2.3-7.9); NEUT % 53.5 % (47.0-73.0); PLATELET COUNT AUTOMATED 207 10*3/uL (130-400); RED BLOOD COUNT 4.48 10*6/uL (4.10-5.10); RED CELL DISTRI WIDTH 13.5 % (0-14.5); WHITE BLOOD COUNT 7.6 10*3/uL (4.8-10.8)
[2023-05-23 10:59] LABS: ALKALINE PHOSPHATASE 164 U/L (46-116); BUN 13 mg/dl (9-23); CHLORIDE 102 mmol/L (98-107); CHOLESTEROL 198 mg/dL (<200); LDL CHOLESTEROL 91 mg/dL (9-159); POTASSIUM 4.4 mmol/L (3.4-5.1); SGPT/ALT 24 U/L (10-49); TOTAL PROTEIN 6.7 gm/dL (6.0-8.0); TRIGLYCERIDES 240 mg/dl (<150)
== END | disposition home or self-care (01) ==
LOC: LAB 10:07
PROVIDERS: ATTEND Nurse Practitioner Primary Care
DX: E78.2 Mixed hyperlipidemia (principal); I10 Essential (primary) hypertension; E11.9 Type 2 diabetes mellitus without complications

== ENCOUNTER → 2023-06-04 | Day surgery (SDC) | payer OTHER ==
[~2023-06-04] VITALS: Ht 170.1 cm; Wt 75.3 kg
[2023-06-04 08:30] VITALS: BP 160/72
[2023-06-04 09:33] VITALS: BP 104/51
[2023-06-04 09:45] VITALS: BP 121/51
[2023-06-04 09:56] VITALS: BP 129/49
== END ==
LOC: SDC 06-01 08:45
PROVIDERS: ATTEND Surgery
DX: R19.5 Other fecal abnormalities (principal); K63.5 Polyp of colon; R14.0 Abdominal distension (gaseous); K30 Functional dyspepsia; K29.50 Unspecified chronic gastritis without bleeding; I10 Essential (primary) hypertension; E11.9 Type 2 diabetes mellitus without complications; K21.9 Gastro-esophageal reflux disease without esophagitis; F41.9 Anxiety disorder, unspecified; G43.909 Migraine, unspecified, not intractable, without status migrainosus; K44.9 Diaphragmatic hernia without obstruction or gangrene; E78.00 Pure hypercholesterolemia, unspecified; J44.9 Chronic obstructive pulmonary disease, unspecified; G47.30 Sleep apnea, unspecified; F17.210 Nicotine dependence, cigarettes, uncomplicated; Z85.42 Personal history of malignant neoplasm of other parts of uterus; Z79.899 Other long term (current) drug therapy; Z90.49 Acquired absence of other specified parts of digestive tract; Z90.710 Acquired absence of both cervix and uterus; Z98.891 History of uterine scar from previous surgery; Z90.89 Acquired absence of other organs; Z98.890 Other specified postprocedural states

== ENCOUNTER → 2023-07-13 | Outpatient (CLI) | payer OTHER | END | disposition home or self-care (01) | LOC: US 00:34 | PROVIDERS: ATTEND Nurse Practitioner Primary Care | DX: R59.0 Localized enlarged lymph nodes (principal) ==

== ENCOUNTER → 2023-09-17 | Outpatient (CLI) | payer OTHER ==
[2023-09-17 11:35] LABS: BUN 11 mg/dl (9-23); CHLORIDE 106 mmol/L (98-107); POTASSIUM 4.2 mmol/L (3.4-5.1)
== END | disposition home or self-care (01) ==
LOC: LAB 10:29
PROVIDERS: ATTEND Nurse Practitioner Primary Care
DX: L03.119 Cellulitis of unspecified part of limb (principal); R21 Rash and other nonspecific skin eruption

== ENCOUNTER → 2023-09-18 | Outpatient (CLI) | payer OTHER | END | disposition home or self-care (01) | LOC: CT 08-14 08:00 | PROVIDERS: ATTEND Nurse Practitioner Primary Care | DX: M79.89 Other specified soft tissue disorders (principal); J43.9 Emphysema, unspecified; R91.8 Other nonspecific abnormal finding of lung field; M47.812 Spondylosis without myelopathy or radiculopathy, cervical region ==

== ENCOUNTER → 2023-10-09 | Outpatient (CLI) | payer OTHER | END | disposition home or self-care (01) | LOC: CT 00:51 | PROVIDERS: ATTEND Nurse Practitioner Primary Care | DX: R91.1 Solitary pulmonary nodule (principal); J43.9 Emphysema, unspecified; I70.0 Atherosclerosis of aorta ==

== ENCOUNTER → 2023-10-10 | Outpatient (CLI) | payer OTHER ==
[2023-10-10 11:45] LABS: CHOLESTEROL 218 mg/dL (<200); LDL CHOLESTEROL 99 mg/dL (9-159); TRIGLYCERIDES 342 mg/dl (<150)
== END | disposition home or self-care (01) ==
LOC: LAB 10:31
PROVIDERS: ATTEND Nurse Practitioner Primary Care
DX: I10 Essential (primary) hypertension (principal); E11.9 Type 2 diabetes mellitus without complications

== ENCOUNTER 2024-02-28 16:09 | Emergency (ER) | payer OTHER, MEDICAID ==
[~2024-02-28] VITALS: Ht 167.6 cm; Wt 77.1 kg
[2024-02-28] MEDS ORDERED: methylPREDNISolone sod succ 125 MG VIAL IV ONE (16:35)
[2024-02-28] MEDS ORDERED: Albuterol Sulfate 2.5 MG/3 ML VIAL NEB ONE ×2 (16:35→18:50)
[2024-02-28] MEDS ORDERED: IOHEXOL 300 MG/ML 100 ML VIAL IV ONE (16:45)
[2024-02-28 16:51] LABS: BASO # 0.1 10*3/uL (0.0-0.1); BASO % 0.5 % (0.0-1.0); EOS # 0.1 10*3/uL (0.0-0.4); EOS % 1.2 % (1.0-4.0); LYMPH % 29.4 % (27.0-41.0); MEAN CELL VOLUME 88.6 fl (81.0-99.0); MEAN CORPUSCULAR HGB 28.9 pg (27.0-31.0); MEAN CORPUSCULAR HGB CONC 32.6 g/dl (33.0-37.0); MEAN PLATELET VOLUME 9.3 fl (9.6-12.3); MONO # 0.8 10*3/uL (0.1-1.0); MONO % 7.9 % (3.0-9.0); NEUT # 6.2 10*3/uL (2.3-7.9); NEUT % 60.5 % (47.0-73.0); PLATELET COUNT AUTOMATED 232 10*3/uL (130-400); RED BLOOD COUNT 4.29 10*6/uL (4.10-5.10); RED CELL DISTRI WIDTH 12.7 % (0-14.5); WHITE BLOOD COUNT 10.3 10*3/uL (4.8-10.8)
[2024-02-28 16:55] LABS: BILIRUBIN Negative (Negative); BLOOD Negative (Negative); CLARITY Clear (Clear); COLOR Yellow (Yellow); GLUCOSE Negative (Negative); KETONE Negative (Negative); LEUKO ESTERASE 1+ (Negative); NITRITE Negative (Negative); SPECIFIC GRAVITY 1.015 (1.001-1.030)
[2024-02-28 16:58] LABS: PH >= 9.0 (4.5-8.0)
[2024-02-28 17:08] LABS: RBC 0-2 rbc/hpf (0-2)
[2024-02-28 17:12] LABS: ALKALINE PHOSPHATASE 138 U/L (46-116); BUN 12 mg/dl (9-23); CHLORIDE 103 mmol/L (98-107); POTASSIUM 4.1 mmol/L (3.4-5.1); SGPT/ALT 43 U/L (5-49); TOTAL PROTEIN 6.7 gm/dL (6.0-8.0)
[2024-02-28] MEDS ORDERED: MAGNESIUM SULFATE 100 ML IV ONE (17:45)
[2024-02-28] MEDS ORDERED: PREDNISONE20 M1 PO (19:12)
== END 2024-02-28 19:43 | disposition home or self-care (01) ==
LOC: ED 16:09
PROVIDERS: Nurse Practitioner
DX: J43.9 Emphysema, unspecified (principal); R07.89 Other chest pain; K57.30 Diverticulosis of large intestine without perforation or abscess without bleeding; I10 Essential (primary) hypertension; E78.00 Pure hypercholesterolemia, unspecified; G43.909 Migraine, unspecified, not intractable, without status migrainosus; I48.91 Unspecified atrial fibrillation; Z88.0 Allergy status to penicillin; Z91.040 Latex allergy status; Z91.013 Allergy to seafood; Z90.49 Acquired absence of other specified parts of digestive tract; Z90.710 Acquired absence of both cervix and uterus; Z96.652 Presence of left artificial knee joint; Z98.890 Other specified postprocedural states; Z72.0 Tobacco use

== ENCOUNTER → 2024-03-13 | Outpatient (CLI) | payer OTHER ==
[~2024-03-13] MED LIST changes: +PREDNISONE20 M1 PO
[2024-03-13 10:54] LABS: ALKALINE PHOSPHATASE 160 U/L (46-116); SGPT/ALT 43 U/L (5-49); TOTAL PROTEIN 6.9 gm/dL (6.0-8.0)
[2024-03-14 07:07] LABS: HBSAG Negative (Negative); HEP B CORE AB, IGM Negative (Negative); HEPATITIS C ANTIBODY Non Reactive (Non Reactive)
== END | disposition home or self-care (01) ==
LOC: LAB 10:08
PROVIDERS: ATTEND Nurse Practitioner Primary Care
DX: R74.8 Abnormal levels of other serum enzymes (principal)

== ENCOUNTER → 2024-06-13 | Outpatient (CLI) | payer MEDICARE ==
[2024-06-13 09:52] LABS: ALKALINE PHOSPHATASE 121 U/L (46-116); BUN 6 mg/dl (9-23); CHLORIDE 101 mmol/L (98-107); SGPT/ALT 90 U/L (5-49); TOTAL PROTEIN 6.8 gm/dL (6.0-8.0)
== END | disposition home or self-care (01) ==
LOC: LAB 08:48
PROVIDERS: ATTEND Nurse Practitioner Primary Care
DX: I10 Essential (primary) hypertension (principal); E03.9 Hypothyroidism, unspecified; E11.9 Type 2 diabetes mellitus without complications

== ENCOUNTER → 2024-07-30 | Outpatient (CLI) | payer MEDICARE ==
[2024-07-30 10:02] LABS: ALKALINE PHOSPHATASE 156 U/L (46-116); BUN 9 mg/dl (9-23); CHLORIDE 101 mmol/L (98-107); GAMMA GLUTAMYL TRANSPEPTIDASE 183 U/L (0-73); POTASSIUM 4.3 mmol/L (3.4-5.1); SGPT/ALT 38 U/L (5-49); TOTAL PROTEIN 6.9 gm/dL (6.0-8.0)
== END | disposition home or self-care (01) ==
LOC: LAB 09:24
PROVIDERS: ATTEND Nurse Practitioner Primary Care
DX: R74.8 Abnormal levels of other serum enzymes (principal)

== ENCOUNTER → 2025-03-09 | Outpatient (CLI) | payer MEDICARE | END | disposition home or self-care (01) | LOC: ORTHO 00:48 | PROVIDERS: ATTEND Orthopaedic Surgery | DX: M16.0 Bilateral primary osteoarthritis of hip (principal) ==

== ENCOUNTER → 2025-03-16 | Outpatient (CLI) | payer MEDICARE, MEDICAID | END | disposition home or self-care (01) | LOC: RAD 10:30 | PROVIDERS: ATTEND Orthopaedic Surgery | DX: M81.0 Age-related osteoporosis without current pathological fracture (principal) ==